=== PATIENT | male | born 1940 | race Caucasian/White ===

== ENCOUNTER 2017-02-06 18:12 | Inpatient (IN) | payer OTHER ==
[2017-02-06] MEDS ORDERED: NS 0.9% 1000 ML* 3,000 ML IV ONE (19:13)
--- NOTE | 2017-02-06 19:54 | RAD ---
INDICATION: Altered mental status, pneumonia. COMPARISON: There are no prior studies available for comparison. TECHNIQUE: A portable view of the chest was obtained. FINDINGS: Cardiac and mediastinal contours appear to be within normal limits. The lungs are underinflated. There is a linear density at the right lung base most consistent with atelectasis. The lungs are otherwise grossly clear. There appears to be distention of the colon. IMPRESSION: DISTENTION OF THE COLON. RECOMMEND ABDOMINAL SERIES FOR FURTHER EVALUATION.
--- NOTE | 2017-02-06 19:56 | RAD ---
INDICATION: Altered mental status. COMPARISON: There are no prior studies available for comparison. TECHNIQUE: Contiguous axial sections of the brain were obtained from the skull base to the vertex without contrast. FINDINGS: The ventricles, cisterns and sulci are within normal limits. No significant focal abnormality or mass effect is seen. There is no evidence for hemorrhage. No significant focal osseous abnormality is seen. The visualized portion of the paranasal sinuses and mastoid air cells appear clear. IMPRESSION: NO EVIDENCE FOR GROSS ACUTE INFARCT, MASS EFFECT OR HEMORRHAGE.
[2017-02-06 20:22] LABS: Hematocrit 31 % (42-52); Hemoglobin 10.3 g/dl (14.0-18.0); Mean Corpuscular HGB Conc 33 g/dl (31-36); Mean Corpuscular Hemoglobin 31 pg (27-31); Mean Corpuscular Volume 95 fL (80-94); Mean Platelet Volume 9 um3 (7.4-10.4); Red Blood Count 3.28 10^6/ul (4.0-5.4); Red Cell Distribution Width 23 % (10.5-15); White Blood Count 4.3 10^3/ul (3.5-10.8)
[2017-02-06 20:23] LABS: Add Diff/Slide Review? Slide Review Added; Comments Flag Yes
[2017-02-06 20:40] LABS: Albumin 2.6 g/dL (3.2-5.2); BUN/Creatinine Ratio 44.3 (8-20); Calcium 8.7 mg/dL (8.6-10.3); EGFR African American 164.8 (>60); EGFR Non-African American 128.2 (>60); Globulin 2.4 g/dL (2-4); Potassium 3.2 mmol/L (3.5-5.0); Total Bilirubin 1.1 mg/dL (0.2-1.0)
[2017-02-06 20:48] LABS: Troponin I 0.04 ng/mL (<0.04)
[2017-02-06 21:37] LABS: Budding Yeast Present (Absent); Urine Bacteria 2+ (Absent); Urine Bilirubin Negative (Negative); Urine Glucose 3+(>=500 mg/dL) (Negative); Urine Nitrite Negative (Negative)
--- NOTE | 2017-02-06 22:08 | ED ---
adriana Trinidad Timothy, scribed for Acosta Meléndez MD on 02/06/17 at 1859 . Complex/Multi-Sys Presentation - HPI Summary HPI Summary: Jorge Ramos is a 76 yo male presenting to [facility] with lethargy and weakness since 0700 this morning. Pt has a wedge compression fracture in his back and cellulitis in his left arm per triage. Per triage he is not taking fluids well. Pt states he has some rectal pain. His son is present in room. His son believes Pt is dehydrated and over-medicated. His son states Pt has a Hx of cholitis. Pt' s son states that his percocet dosage was increased causing constipation, and then diarrhea. His son's states he has been extremely confused today, and states that Pt claims to have seen Rubén today. His Mx includes wedge compression fracture and left arm cellulitis. - History Of Current Complaint Time Seen by Provider: 02/06/17 19:01 Hx Obtained From: Patient Onset/Duration: Sudden Onset, Lasting Hours, Still Present Timing: Constant Severity Currently: Moderate Severity Initially: Moderate Associated Signs And Symptoms: Positive: Weakness, Other - constipation, diarrhea, confusion, lethargy, not taking fluids well, rectal pain, - Allergies/Home Medications Allergies/Adverse Reactions: Allergies Allergy/AdvReac Type Severity Reaction Status Date / Time No Known Allergies Allergy Verified 02/06/17 18:48 PMH/Surg Hx/FS Hx/Imm Hx Infectious Disease History: No Infectious Disease History: Denies: Traveled Outside the [place] in Last 30 Days Review of Systems Positive: Other - lethargy/weakness Eyes: Negative ENT: Negative Cardiovascular: Negative Respiratory: Negative Gastrointestinal: Other - rectal pain Positive: Diarrhea, Other - constipation Genitourinary: Negative Musculoskeletal: Negative Skin: Negative Neurological: Other - confusion Psychological: Normal All Other Systems Reviewed And Are Negative: Yes Physical Exam - Summary Physical Exam Summary: The patient is well-nourished in no acute distress and in no acute pain. The skin is warm and dry and skin color reflects adequate perfusion. There is decreased skin turgor. There is excoriation on his bottom and ulcer around the anus. There is a red rash noted throughout the lower extremities bilaterally. HEENT: The head is normocephalic and atraumatic. The right pupil is larger than the left and both pupils are reactive. The conjunctivae are clear and without drainage. Nares are patent and without drainage. Mouth reveals dry mucous membranes and the throat is without erythema and exudate. The external ears are intact. The ear canals are patent and without drainage. The tympanic membranes are intact. Neck is supple with full range of motion and non-tender. There are no carotid bruits. There is no neck vein distension. Respiratory: Chest is non-tender. Lungs are clear to auscultation and breath sounds are symmetrical and equal. Cardiovascular: Heart is regular rate and rhythm. There is no murmur or rub auscultated. There is no peripheral edema and pulses are symmetrical and equal. Abdomen: The abdomen is soft and non-tender. There are normal bowel sounds heard in all four quadrants and there is no organomegaly palpated. Musculoskeletal: There is no back pain noted. Extremities are non-tender with full range of motion. There is capillary refill of 2 seconds. There is no peripheral pitting edema of the lower extremities or calf tenderness elicited. Neurological: Patient is alert and confused. The patient has symmetrical motor strength in all four extremities. Cranial nerves are grossly intact. Deep tendon reflexes are symmetrical and equal in all four extremities. Pt is slurring his words, but moves with assistance. There are good pulses. Psychiatric: The patient has an appropriate affect and does not exhibit any anxiety or depression. Triage Information Reviewed: Yes Vital Signs On Initial Exam: Initial Vitals Temp Pulse Resp BP Pulse Ox 97.6 F 56 18 126/66 96 02/06/17 18:15 02/06/17 18:15 02/06/17 18:15 02/06/17 18:15 02/06/17 18:15 Vital Signs Reviewed: Yes Diagnostics - Vital Signs Vital Signs Temp Pulse Resp BP Pulse Ox 02/06/17 18:46 97.6 F 56 18 126/66 96 02/06/17 18:15 97.6 F 56 18 126/66 96 - Laboratory Lab Results: Lab Results 02/06/17 02/06/17 02/06/17 Range/Units 20:08 20:08 20:08 WBC 4.3 (3.5-10.8) 10^3/ul RBC 3.28 L (4.0-5.4) 10^6/ul Hgb 10.3 L (14.0-18.0) g/dl Hct 31 L (42-52) % MCV 95 H (80-94) fL MCH 31 (27-31) pg MCHC 33 (31-36) g/dl RDW 23 H (10.5-15) % Plt Count 119 L (150-450) 10^3/ul MPV 9 (7.4-10.4) um3 Neut % (Auto) 85.8 H (38-83) % Lymph % (Auto) 12.2 L (25-47) % Gray % (Auto) 1.9 (1-9) % Eos % (Auto) 0 (0-6) % Baso % (Auto) 0.1 (0-2) % Absolute Neuts (auto) 3.7 (1.5-7.7) 10^3/ul Absolute Lymphs (auto) 0.5 L (1.0-4.8) 10^3/ul Absolute Monos (auto) 0.1 (0-0.8) 10^3/ul Absolute Eos (auto) 0 (0-0.6) 10^3/ul Absolute Basos (auto) 0 (0-0.2) 10^3/ul Absolute Nucleated RBC 6.0 10^3/ul Nucleated RBC % 0.26 INR (Anticoag Therapy) (0.89-1.11) Sodium 128 L (133-145) mmol/L Potassium 3.2 L (3.5-5.0) mmol/L Chloride 90 L (101-111) mmol/L Carbon Dioxide 31 (22-32) mmol/L Anion Gap 7 (2-11) mmol/L BUN 27 H (6-24) mg/dL Creatinine 0.61 L (0.67-1.17) mg/dL Est GFR ( Amer) 164.8 (>60) Est GFR (Non-Af Amer) 128.2 (>60) BUN/Creatinine Ratio 44.3 H (8-20) Glucose 385 H (70-100) mg/dL Lactic Acid 2.5 H* (0.5-2.0) mmol/L Calcium 8.7 (8.6-10.3) mg/dL Magnesium 2.0 (1.9-2.7) mg/dL Total Bilirubin 1.10 H (0.2-1.0) mg/dL AST 19 (13-39) U/L ALT 41 (7-52) U/L Alkaline Phosphatase 201 H (34-104) U/L Total Creatine Kinase 28 (10-223) U/L Troponin I 0.04 H* (<0.04) ng/mL B-Natriuretic Peptide ( - 100) pg/mL Total Protein 5.0 L (6.4-8.9) g/dL Albumin 2.6 L (3.2-5.2) g/dL Globulin 2.4 (2-4) g/dL Albumin/Globulin Ratio 1.1 (1-3) Urine Color Urine Appearance Urine pH (5-9) Ur Specific [place] (1.010-1.030) Urine Protein (Negative) Urine Ketones (Negative) Urine Blood (Negative) Urine Nitrate (Negative) Urine Bilirubin (Negative) Urine Urobilinogen (Negative) Ur Leukocyte Esterase (Negative) Urine WBC (Auto) (Absent) Urine RBC (Auto) (Absent) Ur Squamous Epith Cells (Absent) Urine Bacteria (Absent) Urine Yeast (Absent) Urine Glucose (Negative) 02/06/17 02/06/17 02/06/17 Range/Units 20:08 20:08 21:15 WBC (3.5-10.8) 10^3/ul RBC (4.0-5.4) 10^6/ul Hgb (14.0-18.0) g/dl Hct (42-52) % MCV (80-94) fL MCH (27-31) pg MCHC (31-36) g/dl RDW (10.5-15) % Plt Count (150-450) 10^3/ul MPV (7.4-10.4) um3 Neut % (Auto) (38-83) % Lymph % (Auto) (25-47) % Gray % (Auto) (1-9) % Eos % (Auto) (0-6) % Baso % (Auto) (0-2) % Absolute Neuts (auto) (1.5-7.7) 10^3/ul Absolute Lymphs (auto) (1.0-4.8) 10^3/ul Absolute Monos (auto) (0-0.8) 10^3/ul Absolute Eos (auto) (0-0.6) 10^3/ul Absolute Basos (auto) (0-0.2) 10^3/ul Absolute Nucleated RBC 10^3/ul Nucleated RBC % INR (Anticoag Therapy) 1.06 (0.89-1.11) Sodium (133-145) mmol/L Potassium (3.5-5.0) mmol/L Chloride (101-111) mmol/L Carbon Dioxide (22-32) mmol/L Anion Gap (2-11) mmol/L BUN (6-24) mg/dL Creatinine (0.67-1.17) mg/dL Est GFR ( Amer) (>60) Est GFR (Non-Af Amer) (>60) BUN/Creatinine Ratio (8-20) Glucose (70-100) mg/dL Lactic Acid (0.5-2.0) mmol/L Calcium (8.6-10.3) mg/dL Magnesium (1.9-2.7) mg/dL Total Bilirubin (0.2-1.0) mg/dL AST (13-39) U/L ALT (7-52) U/L Alkaline Phosphatase (34-104) U/L Total Creatine Kinase (10-223) U/L Troponin I (<0.04) ng/mL B-Natriuretic Peptide 51 ( - 100) pg/mL Total Protein (6.4-8.9) g/dL Albumin (3.2-5.2) g/dL Globulin (2-4) g/dL Albumin/Globulin Ratio (1-3) Urine Color Luz Elena Urine Appearance Cloudy Urine pH 5.0 (5-9) Ur Specific [place] 1.026 (1.010-1.030) Urine Protein Negative (Negative) Urine Ketones Negative (Negative) Urine Blood 1+ H (Negative) Urine Nitrate Negative (Negative) Urine Bilirubin Negative (Negative) Urine Urobilinogen Negative (Negative) Ur Leukocyte Esterase 1+ H (Negative) Urine WBC (Auto) 3+(>20/hpf) H (Absent) Urine RBC (Auto) 1+(3-5/hpf) H (Absent) Ur Squamous Epith Cells Present H (Absent) Urine Bacteria 2+ H (Absent) Urine Yeast Present H (Absent) Urine Glucose 3+(>=500 mg/dl) H (Negative) Result Diagrams: 02/06/17 20:08 02/06/17 20:08 Lab Statement: Any lab studies that have been ordered have been reviewed, and results considered in the medical decision making process. - Radiology CXR Xray Interpretation: Positive (See Comments) - IMPRESSION: DISTENTION OF THE COLON. RECOMMEND ABDOMINAL SERIES FOR FURTHER EVALUATION. Radiology Interpretation Completed By: Radiologist - CT Brain CT Interpretation: No Acute Changes - IMPRESSION: NO EVIDENCE FOR GROSS ACUTE INFARCT, MASS EFFECT OR HEMORRHAGE. CT Interpretation Completed By: Radiologist - EKG 2011 Cardiac Rate: NL - 99 BPM EKG Interpretation: Afib @ 99 BPM, nonspecific ST changes, normal axis, no STEMI. Re-Evaluation - Re-Evaluation First Eval Re-Evaluation Time: 21:49 Change: Unchanged Comment: Reviewed lab and imaging results with Pt. Complex Multi-Symp Course/Dx Assessment/Plan: Yaw Ramos is a 76 yo male [facility] with lethargy, weakness, constipation, diarrhea, rectal pain since 0700 this morning. His medication list is reviewed this visit. In the ED course he received IV fluids. His CXR suggests distension of the colon. His Brain CT suggests no evidence for gross acute infarct, mass effect, or hemorrhage. Of note is his troponin of 0.04. After clinical examination and review of his lab and imaging studies, as well as discussion with Dr. Rios, he will be admitted to [facility] for further evaluation and treatment. - Diagnoses Differential Diagnoses/HQI/PQRI: Cardiac Ischemia, Closed Cranial Trauma, Metabolic Abnormality, Sepsis, Urinary Tract Infection, Other - over sedation, colitis Provider Diagnoses: Dehydration, Altered mental status, Hyperglycemia - Physician Notifications Discussed Care Of Patient With: Joe Rios - Discussed Pt condition, accepts Pt for admission Time Discussed With Above Provider: 21:54 Discharge - Discharge Plan Condition: Stable Disposition: ADMITTED TO [facility] Discharge Disposition Comment: admission for further evaluation and treatment Referrals: Phoenix Kristopher, [Primary Care Provider] - The documentation as recorded by the adriana dominguez Timothy accurately reflects the service I personally performed and the decisions made by me, Acosta Meléndez MD.
[2017-02-06] MEDS ORDERED: Ondansetron TAB* 4 MG PO PRN (23:42)
[2017-02-06] MEDS ORDERED: NS 0.9% 1000 ML* 1,000 ML IV SCH (23:45)
[2017-02-07] MEDS ORDERED: Docusate CAP* 100 MG PO PRN (00:21)
[2017-02-07] MEDS ORDERED: Polyethylene Glycol 3350* 17 GM PACKET PO PRN (00:21)
[2017-02-07] MEDS ORDERED: Dextrose 50% Syringe 50 ML* 25 GM/50 ML SYRINGE IV PUSH PRN (00:37)
[2017-02-07] MEDS ORDERED: NS 0.9% w/ 20 Meq KCL 1000 ML* 1,000 ML IV SCH (01:00)
[2017-02-07] MEDS: cefTRIAXone VIAL(*) 1,000 MG in NS 0.9% 50 ML* 50 ML IVPB SCH (02:15)
[2017-02-07] MEDS: oxyCODONE/Acetamin 5/325 MG* TAB PO PRN (03:10)
--- NOTE | 2017-02-07 03:19 | HP ---
CC: Dr. Ubaldo Humphreys, [place], [place] * HISTORY AND PHYSICAL: DATE OF ADMISSION: 02/06/17 PRIMARY CARE PHYSICIAN: Dr. Ubaldo Humphreys in [place]. CHIEF COMPLAINT: Altered mental status. HISTORY OF PRESENT ILLNESS: The patient is a 76-year-old gentleman, who has had inflammation of his colon for some time. He eventually went for colonoscopy earlier this year and apparently went into new-onset atrial fibrillation. His doctor at that time thought it was secondary to an electrolyte imbalance and treated him for same. The colonoscopy was due to chronic diarrhea and abdominal pain. He was found to have throughout his entire colon. The possibility of ulcerative colitis was put forward. He was placed on mesalamine and eventually on prednisone when he was shifted from ____ _ to the [place]. He started doing better; however, he then tripped and fell and apparently fractured T11 or L1. He was sent to rehab eventually at [facility]. 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 He then developed a cellulitis in his left arm as well. Apparently, his condition worsened and he was sent back to the [place]. Eventually, he was sent to rehab and then [facility]. He was complaining still of great pain, so they increased his Percocet and he became very, very confused and was not eating or drinking and he was sent over here for altered mental status. He also suffered from constipation with the increase in Percocet. In the ED, the patient was evaluated and thought to be somewhat dehydrated clinically, certainly confused and he may also have a urinary tract infection. PAST MEDICAL HISTORY: Significant for possible ulcerative colitis as noted earlier, cellulitis of the left limb, recent falls, compression fracture of T11 to T12, wedge compression fracture of the first lumbar vertebrae, type 2 diabetes, hypertension, pressure ulcer of the sacrum, irritable bowel syndrome, AFib, candidal esophagitis. CURRENT MEDICATIONS: As follows: 1. Zofran 4 mg every 6 hours as needed. 2. Senokot 2 tabs twice daily. 3. Percocet 5/325 every 6 hours as needed. 4. Clotrimazole 10 mg 5 times a day. 5. Omeprazole 40 mg a day. 6. Mesalamine 4 tablets daily. 7. Furosemide 20 mg daily. 8. Diltiazem CD 240 mg daily. 9. Calmol 1 suppository at bedtime. 10. Tylenol 1000 mg every 8 hours as needed. 11. Medrol Dosepak, non-formulary med 10. ALLERGIES: He has no know drug allergies. FAMILY HISTORY: Reviewed and noncontributory. SOCIAL HISTORY: Quit tobacco 35 years ago. Quit alcohol 35 years ago. No recreational drug use. Up until October, he was splitting his own wood. He is a . He has 4 children. His son, Nasir Ramos, , is his healthcare proxy. REVIEW OF SYSTEMS: A 14-point review of systems was completed. All pertinent positives and negatives are in the history of present illness, otherwise it is negative. PHYSICAL EXAMINATION GENERAL: A pleasant gentleman lying in bed, in no acute distress. VITAL SIGNS: Blood pressure 107/90, pulse ox 100% on room air, respiratory rate 19 breaths per minute, heart rate 106 beats per minute, temperature 97.6 degrees. HEENT: Normocephalic, atraumatic. Pupils are equal, round, and reactive to light. Moist mucous membranes. NECK: Supple. No JVD, bruits, palpable thyroid, or lymphadenopathy. CHEST: Clear to auscultation and percussion bilaterally. CARDIOVASCULAR: S1, S2 appreciated. ABDOMEN: Positive bowel sounds in all 4 quadrants. Soft, slightly tender, but no rebound, no guarding, no rigidity. EXTREMITIES: No cyanosis or clubbing. +2 pulses bilaterally. NEURO: Alert and oriented x3. Moves all extremities. SKIN: No distinct rashes, but poor skin turgor and no axillary sweat. DIAGNOSTIC STUDIES/LAB DATA: White count 4.3, hemoglobin 10.3, hematocrit 31, platelets are 119. Sodium 128, potassium 3.2, chloride 90, CO2 31, BUN 27, creatinine 0.61, glucose is 385. Lactic acid 2.1. Troponin 0.04. INR 1.06. Urine has +1 leukocyte esterase, +3 wbc's, +[address] showed no evidence for gross acute infarct, mass effect, or hemorrhage. Chest x-ray was interpreted by Radiology as distention of colon, recommend abdominal series for further evaluation. EKG shows normal atrial fibrillation and a moderate ventricular response, normal axis, nonspecific ST-T wave changes. ASSESSMENT AND PLAN: 1. Altered mental status. The patient is becoming less confused while here. I suspect it is combination. He may have urinary tract infection. He maybe dehydrated and maybe the increased pain medications. I decreased his pain medications down to one q.6 hours. I am putting him on normal saline at 100 cc an hour and I am treating him for his urinary tract infection and cellulitis with 1 g Rocephin daily. Unfortunately, I am not sure this will be enough to hold his pain, but we will monitor closely. 2. Low back pain. It may be from the sacral decubitus at this point, it is difficulty to say. He has not had any imaging studies in some time and he was diagnosed with those fractures, but I am concerned some other etiology might be going on that is making him unable to walk. I have ordered MRI to check for any possible diskitis as well. I have also ordered a PT and OT consult on the patient and he may benefit from Neurology if he is unable to walk. 3. Diabetes mellitus. He did not seem to be on any medications, but I will put him on fingersticks with sliding scale insulin, check a hemoglobin A1c. 4. Distended colon on abdominal x-ray. Suspect from constipation, which he was complaining of. We will see how he improves with a bowel regimen. If not, we will get bowel series as recommended. 5. Urinary tract infection. Again, we will place the patient on Rocephin. Await culture results. 6. Gastroesophageal reflux disease. Continue PPI. 7. Ulcerative colitis. Continue mesalamine and he was on a Medrol Dosepak. We will start him on prednisone 20 mg and monitor, may benefit from GI consult. 8. Diet. Consistent carb diet. 9. DVT prophylaxis. Heparin subcu. 10. The patient is full code. TIME SPENT: Over 85 minutes were spent on this H and P, more than 45 minutes of which was spent in direct [id number] contact with the patient in evaluation , physical exam, counseling, and coordination of care. [id number]/[facility] #: [id number] DEB
[2017-02-07] MEDS: Heparin VIAL(*) 5000 UNITS/ML VIAL (FIVE THOUSAND) SUBCUT SCH ×2 (05:35→05:39)
[2017-02-07 06:13] LABS: Benzodiazepine Urine Screen None Detected (None Detect)
[2017-02-07 07:55] LABS: BUN/Creatinine Ratio 47.6 (8-20); Calcium 7.9 mg/dL (8.6-10.3); EGFR African American 253.6 (>60); EGFR Non-African American 197.2 (>60); Potassium 2.9 mmol/L (3.5-5.0)
[2017-02-07 08:05] LABS: Troponin I 0.03 ng/mL (<0.04)
[2017-02-07] MEDS: Insulin LISPRO* 1 UNITS UNIT SUBCUT SCH ×4 (08:50→20:37)
[2017-02-07] MEDS ORDERED: Senna/Docusate (NF) TAB PO SCH (09:00)
[2017-02-07] MEDS ORDERED: Docusate CAP* 100 MG PO SCH (09:00)
[2017-02-07] MEDS: Senna TAB PO SCH ×2 (09:02→20:46)
[2017-02-07] MEDS ORDERED: Potassium Chlor TAB* 20 MEQ TAB.ER PO ONE (09:39)
[2017-02-07] MEDS: Lactobacillus Acidophilu (GG)* 1 CAP CAP PO SCH ×2 (10:03→22:16)
[2017-02-07] MEDS: Omeprazole CAP* 20 MG PO SCH (10:06)
[2017-02-07] MEDS: predniSONE TAB* 20 MG PO SCH (10:07)
[2017-02-07] MEDS: Diltiazem CD CAP* 240 MG PO SCH (10:10)
[2017-02-07] MEDS: PTO: Mesalamine (NF) 1.2 GM TAB PO SCH (10:24)
[2017-02-07] MEDS: KCL 10 MEQ/50 ML IVPREMIX* 10 MEQ/50 ML BAG IV SCH ×3 (10:52→14:08)
[2017-02-07 15:24] LABS: BUN/Creatinine Ratio 48.5 (8-20); Calcium 7.5 mg/dL (8.6-10.3); EGFR African American 334.9 (>60); EGFR Non-African American 260.4 (>60); Potassium 3.6 mmol/L (3.5-5.0)
[2017-02-07] MEDS ORDERED: LORazepam TAB(*) 0.5 MG PO ONE (15:24)
[2017-02-07] MEDS ORDERED: LORazepam TAB(*) 0.5 MG ONE (15:28)
--- NOTE | 2017-02-07 15:37 | PN ---
Subjective Date of Service: 02/07/17 Interval History: This is a 76 yo gentleman with UC, steroid induced DM, atrial fibrillation, candidal esophagitis and recent compression fractures who presented with AMS and severe back pain from [facility] where he has been for rehab. Patient was quite functional and independent up until ~ 4 months ago at which point he began falling frequently at home. His granddaughter had been helping him at home, but one day he decided to go for a walk independently and fell. He hit his head and complained of back pain at that time but didn't want to be seen in the ER. His back pain progressed and compression fractures were recognized on XR. Patient was then admitted for rehab. Patient's family states he deteriorated significantly after entering rehab and has not been able to walk for ~ 4 weeks. He has been complaining of severe back pain, but when you ask him to localize the pain, it is more of his rectum that is causing his discomfort which is severely excoriated. Up until recently, he was having frequent, watery diarrhea due to his UC. Now he has small, soft stools. He has also developed multiple sacral ulcerations which may be contributing to his pain. UTI was suspected at admission and he was empirically started on Ceftriaxone. MRI of his LS has been ordered and currently pending. In regards to his AMS, his Percocet was increased ~ 3 days ago due to his complaints of back pain. Patient's orientation has improved slightly today but not back to baseline. He is still complaining of back/rectal pain. He has spent most of the day sleeping so far. Objective Active Medications: Dextrose (D50w Syringe 50 Ml*) 12.5 gm IV PUSH .FOR FS < 60 - SS PRN PRN Reason: FS < 60 Diltiazem HCl (Cardizem Cd Cap*) 240 mg PO DAILY [facility] Last Admin: 02/07/17 10:10 Dose: 240 mg Docusate Sodium (Colace Cap*) 100 mg PO BID PRN PRN Reason: CONSTIPATION Ceftriaxone Sodium 1,000 mg/ (Sodium Chloride) 50 mls @ 200 mls/hr IVPB Q24H [facility] Last Admin: 02/07/17 02:15 Dose: 200 mls/hr Potassium Chloride/Sodium Chloride (Ns 0.9% W/ 20 Meq Kcl 1000 Ml*) 1,000 mls @ 100 mls/hr IV PER RATE [facility] Insulin Human Lispro (Humalog*) 0 units SUBCUT ACHS [facility] PRN Reason: Protocol Last Admin: 02/07/17 12:48 Dose: 6 units Lactobacillus Rhamnosus (Culturelle*) 1 cap PO BID [facility] Last Admin: 02/07/17 10:03 Dose: 1 cap Lidocaine (Lidocaine 5% Oint*) 1 applic TOPICAL Q2H PRN PRN Reason: rectal pain Mesalamine (Lialda (Nf)) 4.8 gm PO DAILY [facility] Last Admin: 02/07/17 10:24 Dose: Not Given Omeprazole (Prilosec Cap*) 40 mg PO DAILY@0730 [facility] Last Admin: 02/07/17 10:06 Dose: 40 mg Ondansetron HCl (Zofran Tab*) 4 mg PO Q6H PRN PRN Reason: NAUSEA Oxycodone/Acetaminophen (Percocet 5/325 Tab*) 1 tab PO Q6H PRN PRN Reason: PAIN Last Admin: 02/07/17 03:10 Dose: 1 tab Polyethylene Glycol/Electrolytes (Miralax*) 17 gm PO DAILY PRN PRN Reason: CONSTIPATION Prednisone (Deltasone Tab*) 20 mg PO DAILY WITH MEAL [facility] Last Admin: 02/07/17 10:07 Dose: 20 mg Senna (Senokot Tab*) 2 tab PO BID [facility] Last Admin: 02/07/17 09:02 Dose: Not Given Vital Signs: Temp Pulse Resp BP Pulse Ox 97.9 F 111 17 102/63 92 02/07/17 07:27 02/07/17 11:19 02/07/17 11:19 02/07/17 11:19 02/07/17 11:19 Appearance: Elderly gentleman who appears slightly uncomfortable, accompanied by his family Respiratory: Symmetrical Chest Expansion and Respiratory Effort, Clear to Auscultation Cardiovascular: NL Sounds; No Murmurs; No JVD, RRR Abdominal: NL Sounds; No Tenderness; No Distention Extremities: No Edema Skin: - - not fully examined, see nursing notes Neurological: - - alert, some confusion Result Diagrams: 02/06/17 20:08 02/07/17 05:49 Additional Lab and Data: . Microbiology and Other Data: Microbiology 02/07/17 02:20 Nasal Screen MRSA (PCR)([facility]LE[facility]) - Final Nasal Mrsa Negative Assess/Plan/Problems-Billing Assessment: This is a 76 yo gentleman with UC, steroid induced DM, atrial fibrillation, candidal esophagitis and recent compression fractures who presented from [facility] with AMS and severe back pain - Patient Problems (1) Encephalopathy Comment: Toxic encephalopathy likely due to recent increase in Percocet and UTI Improving slightly (2) UTI (urinary tract infection) Comment: Empirically treating with Ceftriaxone Initial cultures growing >100K Citrobacter No growth on blood cultures thus far (3) Back pain Comment: Compression fractures ~ 4 weeks ago Patient mostly complaining of rectal pain - ordered topical lidocaine Sacral ulcers may also be contributing - requested wound care consult MRI pending, some concern for discitis Patient's functional status has declined significantly over the last 4 weeks PT eval completed, patient requires Jose lift for transfers (4) 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 MRI pending. Anticipate dc back to [facility] in 2-3 days
[2017-02-07] MEDS ORDERED: Gadoteridol* (CONTRAST) 279.3 MG/ML 10 ML IV ONE (16:05)
--- NOTE | 2017-02-07 16:53 | RAD ---
Indication: Evaluate for diskitis, osteomyelitis. Image Sequences: Sagittal T1, T2, STIR, axial T1 and T2-weighted images of the lumbar spine were obtained. Patient refused intravenous contrast. Vertebral bodies appear normal in height. Compression fracture of L1 is noted. Age of this is undetermined. There is serpiginous low signal present. There is some edema and fluid at the L1-2 disc as well as T11-12 disc space. Minimal degenerative disc disease is noted. Serpiginous abnormal signal is noted in the superior endplate of L3, L2, L1, T12 and T11. No evidence of spinal canal compression is noted. IMPRESSION: ABNORMAL SIGNAL AT L3, L2, L1, T12 AND T11 WHICH APPEARS SERPIGINOUS. COMPRESSION OF L1 IS NOTED. NO DEFINITE BONE MARROW EDEMA IS NOTED. THIS MAY REPRESENT AVASCULAR NECROSIS OF THE LUMBAR VERTEBRA. ADDITIONALLY, THERE IS SOME FLUID NOTED AT THE INFERIOR DISC SPACE AT L1-2 AND T11-12 WHICH IS LIKELY DUE TO SEQUELA FROM AVASCULAR NECROSIS. THIS PROBABLY DOES NOT REPRESENT DISKITIS, ALTHOUGH THE PATIENT REFUSED IV CONTRAST AND FURTHER CHARACTERIZATION IS NOT POSSIBLE.
[2017-02-07] MEDS: LIDOCAINE 5% TOPICAL PRN (17:17)
--- NOTE | 2017-02-07 18:19 | RAD ---
Indication: Facial asymmetry. CT of the brain was performed without IV contrast. Ventricular structures are midline. No midline shift is noted. The extraction spaces are unremarkable. There is no evidence of intracranial mass or hemorrhage. No other high or low density lesions are identified. Calcified vertebral arteries are noted. Mastoid air cells and paranasal sinuses are otherwise unremarkable. IMPRESSION: No intracranial mass or hemorrhage is noted.
[2017-02-07] MEDS: Insulin GLARGINE(*) 1 UNITS UNIT SUBCUT SCH (20:43)
[2017-02-08] MEDS: cefTRIAXone VIAL(*) 1,000 MG in NS 0.9% 50 ML* 50 ML IVPB SCH (01:09)
[2017-02-08] MEDS: guaiFENesin ER TAB 600 MG PO PRN ×3 (05:24→22:10)
[2017-02-08 06:06] LABS: Hematocrit 26 % (42-52); Hemoglobin 8.7 g/dl (14.0-18.0); Mean Corpuscular HGB Conc 33 g/dl (31-36); Mean Corpuscular Hemoglobin 31 pg (27-31); Mean Corpuscular Volume 94 fL (80-94); Mean Platelet Volume 8 um3 (7.4-10.4); Red Blood Count 2.79 10^6/ul (4.0-5.4); Red Cell Distribution Width 23 % (10.5-15); White Blood Count 3.6 10^3/ul (3.5-10.8)
[2017-02-08 06:10] LABS: Add Diff/Slide Review? Slide Review Added; Comments Flag Yes
[2017-02-08 06:16] LABS: Calcium 7.8 mg/dL (8.6-10.3); EGFR Non-African American 342.9 (>60)
[2017-02-08 06:47] LABS: Hypochromasia 1+; Immature Granulocytes 32 % (0-9); Macrocytosis 1+; Microcytosis 1+; Neutrophil % 52 % (38-83); Polychromasia 1+
[2017-02-08] MEDS: Insulin LISPRO* 1 UNITS UNIT SUBCUT SCH ×4 (07:35→22:05)
[2017-02-08 07:41] LABS: Magnesium 1.5 mg/dL (1.9-2.7)
[2017-02-08] MEDS: Senna TAB PO SCH ×2 (08:25→22:10)
[2017-02-08] MEDS: Omeprazole CAP* 20 MG PO SCH (08:45)
[2017-02-08] MEDS: Lactobacillus Acidophilu (GG)* 1 CAP CAP PO SCH ×2 (08:45→22:03)
[2017-02-08] MEDS: Diltiazem CD CAP* 240 MG PO SCH (08:45)
[2017-02-08] MEDS: predniSONE TAB* 20 MG PO SCH (08:45)
[2017-02-08] MEDS: PTO: Mesalamine (NF) 1.2 GM TAB PO SCH (08:45)
--- NOTE | 2017-02-08 08:56 | CONSULT ---
Consult Consult: Neurosurgery consult Date of consult: 02/08/17 Reason for consult: Lumbar compression fracture Referring physician: MARY ELLEN Alexandre HPI: This is a 76 year old male with past medical history significant for HTN, type 2 diabetes, atrial fibrillation, ulcerative colitis who presented to the [facility] ED from [facility] for altered mental status and low back pain. History is primarily obtained from family member in the room although patient is able to report symptoms. The patient has experienced 3-4 falls in the past 4 weeks while at home resulting in severe low back pain and difficulty with ambulation. He has not been able to walk in the past 4 weeks. Prior to this, he was using a cane for stability and was able to get around without difficulty. He complains of low back pain without radiation to the bilateral lower extremities. Pain is worse with movement and is improved with laying or recumbent in bed. He denies numbness, tingling and weakness in the lower extremities. He also complains of rectal pain. He denies headache, vision changes, changes is speech, difficulty breathing, chest pain, neck pain, numbness, tingling and pain in the upper extremities, lightheadedness and dizziness. Past medical history: 1. Ulcerative colitis 2. HTN 3. Steroid induced diabetes 4. Candidal esophagitis 5. Left upper extremity cellulitis 6. Atrial fibrillation Home medications: 1. Acetaminophen [Acetaminophen Extra Stren] 1,000 mg PO Q8H PRN 02/06/17 [ History Confirmed 02/06/17] 2. Calmol-4 76-10 % 1 supp DC BEDTIME 02/06/17 [History Confirmed 02/06/17] 3. Clotrimazole 10 mg PO SEE INSTRUCTIONS 02/06/17 [History Confirmed 02/06/17] 4. Diltiazem HCl Coated Beads [Cardizem 120 MG LA] 240 mg PO DAILY 02/06/17 [ History Confirmed 02/06/17] 5. Furosemide TAB* [Lasix TAB*] 20 mg PO DAILY 02/06/17 [History Confirmed 02/06] 6. Medrol Dosepak 4 MG* 02/06/17 [History] 7. Mesalamine (NF) [Lialda (NF)] 4 tab PO DAILY 02/06/17 [History Confirmed 03/18] 8. Non Formulary Med10* 02/06/17 [History] 9. Omeprazole 40 mg PO DAILY 02/06/17 [History Confirmed 02/06/17] 10. Ondansetron TAB* [Zofran 4 MG Tab*] 4 mg PO Q6H PRN 02/06/17 [History Confirmed 02/06/17] 11. Sennosides-Docusate Sodium [Senokot S 8.6-50 mg] 2 tab PO BID 02/06/17 [ History Confirmed 02/06/17] 12. oxyCODONE/Acetamin 5/325 MG* [Percocet 5/325 TAB*] 1 tab PO Q6H PRN [History Confirmed 02/06/17] Allergies: No known allergies Social history: Former smoker and former alcohol consumption. Was living at home with assistance from family and, more recently, was admitted to [facility] for rehab. ROS: ROS completed; all pertinent findings stated in HPI and all others negative. Physical Exam: Vital Signs: Temp Pulse Resp BP Pulse Ox 97.6 F 96 15 123/53 95 02/08/17 03:13 02/08/17 07:27 02/08/17 07:27 02/08/17 07:27 02/08/17 07:27 General: Alert, no distress recumbent in bed. HEENT: Head is normocephalic and atraumatic. PERRL, EOMI, sclerae anicteric. Gross hearing intact. Moist mucus membranes. Neck: Supple, symmetric and nontender. CV: Radial pulses 2+ and equal. Pedal pulses palpable. Lungs: Breathing is nonlabored and lungs are clear. Abdomen: Normoactive bowel sounds. Abdomen is soft, nondistended and nontender. Neuro: CN II-XII intact. Speech is clear and coherent. Answers questions appropriately. Sensation intact throughout. Strength in biceps and triceps 4/5 bilaterally. Computer Peripheral Equipment Operator strength 4/5 bilaterally. Proximal lower extremity strength 3/ 5 bilaterally. Dorsiflexion, plantarflexion and EHL strength 5/5 bilaterally. Extremities: Pitting edema bilateral ankles. Imagin. MRI lumbar spine shows compression fractures of T11, T12 and L1. Assessment: This is a 76 year old male who presented to [facility] ED with altered mental status and low back pain who was found to have compression fractures of T11, T12 and L1. L1 fracture is most significant. Lower extremity strength deficits and muscle atrophy secondary to being sedentary for the past several weeks. There is no indication at this time for neurosurgical intervention for treatment of the fractures. This case was discussed with Dr. Mark and recommendations discussed with MARY ELLEN Alexandre. Plan: 1. Continue pain management. 2. No surgery indicated for fractures.
[2017-02-08] MEDS ORDERED: Magnesium Sulf 4 GM/100 ML IV* 4,000 MG/100 ML BAG IVPB ONE (11:38)
--- NOTE | 2017-02-08 13:33 | PN ---
Subjective Date of Service: 02/08/17 Interval History: Patient remains lethargic but more coherent with complaints of back pain/rectal pain. Evaluated by neurosurgery team this am. No new complaints Objective Active Medications: Dextrose (D50w Syringe 50 Ml*) 12.5 gm IV PUSH .FOR FS < 60 - SS PRN PRN Reason: FS < 60 Diltiazem HCl (Cardizem Cd Cap*) 360 mg PO DAILY [facility] Docusate Sodium (Colace Cap*) 100 mg PO BID PRN PRN Reason: CONSTIPATION Guaifenesin (Mucinex*) 600 mg PO BID PRN PRN Reason: COUGH Last Admin: 02/08/17 11:04 Dose: 600 mg Ceftriaxone Sodium 1,000 mg/ (Sodium Chloride) 50 mls @ 200 mls/hr IVPB Q24H [facility] Last Admin: 02/08/17 01:09 Dose: 200 mls/hr Magnesium Sulfate (Magnesium Sulf 4 Gm/100 Ml Iv*) 4,000 mg in 100 mls @ 33.333 mls/hr IVPB ONCE ONE Stop: 02/08/17 14:37 Last Admin: 02/08/17 12:44 Dose: 33.333 mls/hr Insulin Glargine (Lantus(*)) 15 units SUBCUT Q24H [facility] Last Admin: 02/07/17 20:43 Dose: 15 units Insulin Human Lispro (Humalog*) 0 units SUBCUT ACHS [facility] PRN Reason: Protocol Lactobacillus Rhamnosus (Culturelle*) 1 cap PO BID [facility] Last Admin: 02/08/17 08:45 Dose: 1 cap Lidocaine (Lidocaine 5% Oint*) 1 applic TOPICAL Q2H PRN PRN Reason: rectal pain Last Admin: 02/07/17 17:17 Dose: 1 applic Lidocaine (Lidocaine 5% Oint*) 1 applic TOPICAL TID [facility] Lidocaine (Lidoderm 5% Patch*) 1 patch TRANSDERM .ON 0900 OFF AT 2100 [facility] Mesalamine (Lialda (Nf)) 4.8 gm PO DAILY [facility] Last Admin: 02/08/17 08:45 Dose: 4.8 gm Methylprednisolone (Medrol Tab*) 16 mg PO BID [facility] Omeprazole (Prilosec Cap*) 40 mg PO DAILY@0730 [facility] Last Admin: 02/08/17 08:45 Dose: 40 mg Ondansetron HCl (Zofran Tab*) 4 mg PO Q6H PRN PRN Reason: NAUSEA Oxycodone/Acetaminophen (Percocet 5/325 Tab*) 1 tab PO Q6H PRN PRN Reason: PAIN Last Admin: 02/07/17 03:10 Dose: 1 tab Pharmacy Profile Note (Lidocaine Patch Remove*) 1 note N/A 2100 [facility] Polyethylene Glycol/Electrolytes (Miralax*) 17 gm PO DAILY PRN PRN Reason: CONSTIPATION Potassium Chloride (Klor Con Er Tab*) 40 meq PO BID [facility] Stop: 02/09/17 09:01 Senna (Senokot Tab*) 2 tab PO BID [facility] Last Admin: 02/08/17 08:25 Dose: Not Given Vital Signs: Temp Pulse Resp BP Pulse Ox 97.6 F 96 16 123/53 95 02/08/17 03:13 02/08/17 07:27 02/08/17 08:00 02/08/17 07:27 02/08/17 07:27 Appearance: Lethargic, but participatory in conversation. Accompanied by male family member Respiratory: Symmetrical Chest Expansion and Respiratory Effort, Clear to Auscultation, - - some upper airway congestion noted Cardiovascular: NL Sounds; No Murmurs; No JVD, RRR Abdominal: NL Sounds; No Tenderness; No Distention Extremities: - - trace - 1+ edema Skin: - - sacral ulcers not evaluated Neurological: - - alert, appropriately oriented, ptosis of L eye which is chronic per family Result Diagrams: 02/08/17 05:36 02/08/17 05:36 Additional Lab and Data: . Microbiology and Other Data: Microbiology 02/07/17 02:20 Nasal Screen MRSA (PCR)([facility]) - Final Nasal Mrsa Negative Diagnostic Imaging: MRI LS - compression fracture L1, some signal changes of L1-2 and T11-12 no definite diskitis Assess/Plan/Problems-Billing Assessment: This is a 76 yo gentleman with UC, steroid induced DM, atrial fibrillation, candidal esophagitis and recent compression fractures who presented from [facility] with AMS and severe back pain - Patient Problems (1) Encephalopathy Comment: Toxic encephalopathy likely due to recent increase in Percocet and UTI Improving He has not received any narcotic medications in >24h (2) UTI (urinary tract infection) Comment: Empirically treated with ceftriaxone, but sensitivities now demonstrate resistance Final culture demonstrates >100K Citrobacter No growth on blood cultures thus far Discontinue ceftriaxone and start cefepime (3) Back pain Comment: Compression fractures ~ 4 weeks ago Patient mostly complaining of rectal pain - ordered topical lidocaine, pt doesn' t recall if it was helpful, try to use it on a scheduled bases Sacral ulcers may also be contributing - requested wound care consult, apply Mepilex for now MRI shows no signs of discitis or cord compression Little change in pain since limiting narcotics Try adding a lidocaine patch to L1 region Appreciate neurosurgery consult, no surgical intervention indicated PT eval completed, patient requires Jose lift for transfers (4) Diabetes Comment: 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 Anticipate dc back to [facility] in 2-3 days
[2017-02-08] MEDS ORDERED: Lidocaine PATCH 5%* 1 PATCH TRANSDERM SCH (14:00)
[2017-02-08] MEDS: Cefepime(*) 1 GM in NS 0.9% 50 ML* 50 ML IVPB SCH (15:46)
[2017-02-08] MEDS: LIDOCAINE 5% TOPICAL SCH ×2 (15:46→22:02)
[2017-02-08] MEDS: Potassium Chlor TAB* 20 MEQ TAB.ER PO SCH (22:03)
[2017-02-08] MEDS: methylPREDNISolone TAB* 4 MG PO SCH (22:03)
[2017-02-08] MEDS: Insulin GLARGINE(*) 1 UNITS UNIT SUBCUT SCH (22:05)
[2017-02-08] MEDS: Lidocaine Patch REMOVE* 1 NOTE MISC SCH (22:24)
[2017-02-09] MEDS: Cefepime(*) 1 GM in NS 0.9% 50 ML* 50 ML IVPB SCH ×2 (01:55→13:37)
[2017-02-09] MEDS: Benzonatate CAP* 100 MG PO PRN ×2 (02:17→22:51)
[2017-02-09 06:43] LABS: Hematocrit 26 % (42-52); Hemoglobin 8.7 g/dl (14.0-18.0); Mean Corpuscular HGB Conc 33 g/dl (31-36); Mean Corpuscular Hemoglobin 32 pg (27-31); Mean Corpuscular Volume 96 fL (80-94); Mean Platelet Volume 8 um3 (7.4-10.4); Red Blood Count 2.72 10^6/ul (4.0-5.4); Red Cell Distribution Width 23 % (10.5-15); White Blood Count 4.6 10^3/ul (3.5-10.8)
[2017-02-09 06:47] LABS: Add Diff/Slide Review? Slide Review Added; Comments Flag Yes
[2017-02-09 06:48] LABS: BUN/Creatinine Ratio 52.4 (8-20); Calcium 7.6 mg/dL (8.6-10.3); EGFR African American 564.3 (>60); EGFR Non-African American 438.8 (>60); Potassium 3.5 mmol/L (3.5-5.0)
[2017-02-09 07:02] LABS: Immature Granulocytes 41 % (0-9); Metamyelocytes % 1 % (0-2); Myelocytes % 1 % (0-1); Neutrophil % 56 % (38-83)
[2017-02-09 07:03] LABS: Hypochromasia 1+; Macrocytosis 1+; Microcytosis 1+; Polychromasia 2+
[2017-02-09] MEDS: PTO: Mesalamine (NF) 1.2 GM TAB PO SCH (09:02)
[2017-02-09] MEDS: LIDOCAINE 5% TOPICAL PRN (09:02)
[2017-02-09] MEDS: Diltiazem CD CAP* 180 MG PO SCH (09:11)
[2017-02-09] MEDS: methylPREDNISolone TAB* 4 MG PO SCH ×2 (09:12→22:51)
[2017-02-09] MEDS: Omeprazole CAP* 20 MG PO SCH (09:14)
[2017-02-09] MEDS: oxyCODONE/Acetamin 5/325 MG* TAB PO PRN (09:14)
[2017-02-09] MEDS: Lactobacillus Acidophilu (GG)* 1 CAP CAP PO SCH ×2 (09:14→22:51)
[2017-02-09] MEDS: Potassium Chlor TAB* 20 MEQ TAB.ER PO SCH (09:15)
[2017-02-09] MEDS: guaiFENesin ER TAB 600 MG PO PRN (09:17)
[2017-02-09] MEDS: Insulin LISPRO* 1 UNITS UNIT SUBCUT SCH ×4 (09:18→22:50)
[2017-02-09] MEDS: LIDOCAINE 5% TOPICAL SCH ×3 (09:29→22:51)
[2017-02-09] MEDS: Senna TAB PO SCH (09:29)
--- NOTE | 2017-02-09 14:50 | PN ---
Subjective Date of Service: 02/09/17 Interval History: Patient seen and examined at bedside. Denies CP, SOB. Reports persistent back pain and has not noticed any significant difference with medication changes. Appears coherent and knows where he is, though he asks "what's today's date?" Upon hearing response, he states, "I've had this back problem since October." Family History: Unchanged from Admission Social History: Unchanged from Admission Past Medical History: Unchanged from Admission Objective Active Medications: Benzonatate (Tessalon Cap*) 100 mg PO TID PRN PRN Reason: COUGH Last Admin: 02/09/17 02:17 Dose: 100 mg Dextrose (D50w Syringe 50 Ml*) 12.5 gm IV PUSH .FOR FS < 60 - SS PRN PRN Reason: FS < 60 Diltiazem HCl (Cardizem Cd Cap*) 360 mg PO DAILY [facility] Last Admin: 02/09/17 09:11 Dose: 360 mg Docusate Sodium (Colace Cap*) 100 mg PO BID PRN PRN Reason: CONSTIPATION Guaifenesin (Mucinex*) 600 mg PO BID PRN PRN Reason: COUGH Last Admin: 02/09/17 09:17 Dose: 600 mg Cefepime HCl 1 gm/ Sodium (Chloride) 50 mls @ 100 mls/hr IVPB Q12H [facility] Last Admin: 02/09/17 13:37 Dose: 100 mls/hr Insulin Glargine (Lantus(*)) 15 units SUBCUT Q24H [facility] Last Admin: 02/08/17 22:05 Dose: 15 units Insulin Human Lispro (Humalog*) 0 units SUBCUT ACHS [facility] PRN Reason: Protocol Last Admin: 02/09/17 12:36 Dose: 9 units Lactobacillus Rhamnosus (Culturelle*) 1 cap PO BID [facility] Last Admin: 02/09/17 09:14 Dose: 1 cap Lidocaine (Lidocaine 5% Oint*) 1 applic TOPICAL Q2H PRN PRN Reason: rectal pain Last Admin: 02/09/17 09:02 Dose: 1 applic Lidocaine (Lidocaine 5% Oint*) 1 applic TOPICAL TID [facility] Last Admin: 02/09/17 13:38 Dose: 1 applic Lidocaine (Lidoderm 5% Patch*) 1 patch TRANSDERM .ON 0900 OFF AT 2100 [facility] Mesalamine (Lialda (Nf)) 4.8 gm PO DAILY [facility] Last Admin: 02/09/17 09:02 Dose: 4.8 gm Methylprednisolone (Medrol Tab*) 16 mg PO BID [facility] Last Admin: 02/09/17 09:12 Dose: 16 mg Omeprazole (Prilosec Cap*) 40 mg PO DAILY@0730 [facility] Last Admin: 02/09/17 09:14 Dose: 40 mg Ondansetron HCl (Zofran Tab*) 4 mg PO Q6H PRN PRN Reason: NAUSEA Oxycodone/Acetaminophen (Percocet 5/325 Tab*) 1 tab PO Q6H PRN PRN Reason: PAIN Last Admin: 02/09/17 09:14 Dose: 1 tab Pharmacy Profile Note (Lidocaine Patch Remove*) 1 note N/A 2100 [facility] Last Admin: 02/08/17 22:24 Dose: Not Given Polyethylene Glycol/Electrolytes (Miralax*) 17 gm PO DAILY PRN PRN Reason: CONSTIPATION Senna (Senokot Tab*) 2 tab PO BID [facility] Last Admin: 02/09/17 09:29 Dose: Not Given Vital Signs 02/08/17 02/08/17 02/08/17 15:16 19:58 20:00 Temperature 98.0 F 98.1 F Pulse Rate 84 90 Respiratory 15 15 16 Rate Blood Pressure 114/47 102/46 (mmHg) O2 Sat by Pulse 93 97 Oximetry 02/09/17 02/09/17 02/09/17 03:55 07:49 08:00 Temperature 98.0 F Pulse Rate 72 93 Respiratory 15 20 18 Rate Blood Pressure 122/75 136/71 (mmHg) O2 Sat by Pulse 90 95 Oximetry 02/09/17 02/09/17 09:14 11:14 Temperature Pulse Rate Respiratory 18 18 Rate Blood Pressure (mmHg) O2 Sat by Pulse Oximetry Oxygen Devices in Use Now: None Appearance: Male patient, lying in bed, NAD Eyes: - - left eye ptosis Ears/Nose/Mouth/Throat: Mucous Membranes Moist Neck: NL Appearance and Movements; NL JVP Respiratory: Symmetrical Chest Expansion and Respiratory Effort, Clear to Auscultation Cardiovascular: RRR Abdominal: NL Sounds; No Tenderness; No Distention Extremities: - - trace LE edema Neurological: Alert and Oriented x 3 Lines/Tubes/Other Access: Clean, Dry and Intact PICC Line Nutrition: Taking PO's Result Diagrams: 02/09/17 06:06 02/09/17 06:06 Additional Lab and Data: . Microbiology and Other Data: Microbiology 02/07/17 02:20 Nasal Screen MRSA (PCR)([facility]) - Final Nasal Mrsa Negative Diagnostic Imaging: MRI LS - compression fracture L1, some signal changes of L1-2 and T11-12 no definite diskitis Assess/Plan/Problems-Billing Assessment: This is a 76 yo gentleman with UC, steroid induced DM, atrial fibrillation, candidal esophagitis and recent compression fractures who presented [facility] with AMS and severe back pain - Patient Problems (1) Encephalopathy Code(s): G93.40 - ENCEPHALOPATHY, UNSPECIFIED Comment: Toxic encephalopathy likely due to recent increase in Percocet and UTI Improving Received one dose of Percocet this AM but appears to be tolerating well. (2) UTI (urinary tract infection) Comment: Empirically treated with ceftriaxone, but sensitivities now demonstrate resistance Final culture demonstrates >100K Citrobacter No growth on blood cultures thus far Discontinue ceftriaxone and start cefepime (3) Back pain Code(s): M54.9 - DORSALGIA, UNSPECIFIED Comment: Compression fractures ~ 4 weeks ago Patient mostly complaining of rectal pain - ordered topical lidocaine, pt doesn' t recall if it was helpful, try to use it on a scheduled bases Sacral ulcers may also be contributing - appreciate wound care consult, continue daily dressing changes with Santyl and vaseline gauze. 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% Per pt's family, no treatment has been initiated as his glycemic control is expected to improve as he is tapered off of his steroids Plan to start Lantus at 15U nightly with SS Humalog at mealtime (5) Sacral decubitus ulcer, stage II Code(s): L89.152 - PRESSURE ULCER OF SACRAL REGION, STAGE 2 Comment: Appreciate wound care consult Daily dressing change recommended, with Santyl and vaseline gauze (6) Atrial fibrillation Code(s): I48.91 - UNSPECIFIED ATRIAL FIBRILLATION Comment: Not anticoagulated per family request h/o severe bleeding (7) Candidal esophagitis Code(s): B37.81 - CANDIDAL ESOPHAGITIS Comment: Cont clotrimazole (8) DVT prophylaxis Comment: SCDs Patient's family refuses use of chemical prophylaxis (9) DNR (do not resuscitate) Status and Disposition: Inpatient. Anticipate dc back to [facility] in 2-3 days
[2017-02-09] MEDS: Collagenase 250 MG/GM OINT* 30 GM TOPICAL SCH (16:20)
[2017-02-09] MEDS: Lidocaine Patch REMOVE* 1 NOTE MISC SCH (21:20)
[2017-02-09] MEDS: Insulin GLARGINE(*) 1 UNITS UNIT SUBCUT SCH (22:50)
[2017-02-10] MEDS: guaiFENesin ER TAB 600 MG PO PRN (01:39)
[2017-02-10] MEDS: Cefepime(*) 1 GM in NS 0.9% 50 ML* 50 ML IVPB SCH ×2 (01:40→14:13)
[2017-02-10] MEDS: oxyCODONE/Acetamin 5/325 MG* TAB PO PRN (04:38)
[2017-02-10] MEDS: Omeprazole CAP* 20 MG PO SCH (07:16)
[2017-02-10] MEDS: PTO: Mesalamine (NF) 1.2 GM TAB PO SCH (08:59)
[2017-02-10] MEDS: Insulin LISPRO* 1 UNITS UNIT SUBCUT SCH ×4 (08:59→21:06)
[2017-02-10] MEDS: LIDOCAINE 5% TOPICAL SCH ×3 (09:00→21:08)
[2017-02-10] MEDS: Collagenase 250 MG/GM OINT* 30 GM TOPICAL SCH (09:00)
[2017-02-10] MEDS: Diltiazem CD CAP* 180 MG PO SCH (09:00)
[2017-02-10] MEDS: Lactobacillus Acidophilu (GG)* 1 CAP CAP PO SCH ×2 (09:00→21:08)
[2017-02-10] MEDS: methylPREDNISolone TAB* 4 MG PO SCH ×2 (09:00→21:07)
--- NOTE | 2017-02-10 10:18 | PN ---
Subjective Date of Service: 02/10/17 Interval History: Patient seen and examined at bedside. Reports better pain relief when lidocaine patch is on. Denies CP, SOB, abd pain, n/v. Patient is mildly disoriented, asking "what day is it again?" He does know his family and that he's in a hospital. Family concerned for protein intake and are in agreement with protein supplement shakes. Family wants patient at [facility] in [place] or another rehab facility closer to them. Family History: Unchanged from Admission Social History: Unchanged from Admission Past Medical History: Unchanged from Admission Objective Active Medications: Benzonatate (Tessalon Cap*) 100 mg PO TID PRN PRN Reason: COUGH Last Admin: 02/09/17 22:51 Dose: 100 mg Collagenase (Santyl 250 Mg/Gm Oint*) 1 applic TOPICAL DAILY [facility] Last Admin: 02/10/17 09:00 Dose: 1 applic Dextrose (D50w Syringe 50 Ml*) 12.5 gm IV PUSH .FOR FS < 60 - SS PRN PRN Reason: FS < 60 Diltiazem HCl (Cardizem Cd Cap*) 360 mg PO DAILY [facility] Last Admin: 02/10/17 09:00 Dose: 360 mg Guaifenesin (Mucinex*) 600 mg PO BID PRN PRN Reason: COUGH Last Admin: 02/10/17 01:39 Dose: 600 mg Cefepime HCl 1 gm/ Sodium (Chloride) 50 mls @ 100 mls/hr IVPB Q12H [facility] Last Admin: 02/10/17 01:40 Dose: 100 mls/hr Insulin Glargine (Lantus(*)) 15 units SUBCUT Q24H [facility] Last Admin: 02/09/17 22:50 Dose: 15 units Insulin Human Lispro (Humalog*) 0 units SUBCUT ACHS [facility] PRN Reason: Protocol Last Admin: 02/10/17 08:59 Dose: 3 units Lactobacillus Rhamnosus (Culturelle*) 1 cap PO BID [facility] Last Admin: 02/10/17 09:00 Dose: 1 cap Lidocaine (Lidocaine 5% Oint*) 1 applic TOPICAL Q2H PRN PRN Reason: rectal pain Last Admin: 02/09/17 09:02 Dose: 1 applic Lidocaine (Lidocaine 5% Oint*) 1 applic TOPICAL TID [facility] Last Admin: 02/10/17 09:00 Dose: 1 applic Lidocaine (Lidoderm 5% Patch*) 1 patch TRANSDERM .ON 0900 OFF AT 2100 [facility] Last Admin: 02/09/17 16:20 Dose: 1 patch Mesalamine (Lialda (Nf)) 4.8 gm PO DAILY [facility] Last Admin: 02/10/17 08:59 Dose: 4.8 gm Methylprednisolone (Medrol Tab*) 16 mg PO BID [facility] Last Admin: 02/10/17 09:00 Dose: 16 mg Omeprazole (Prilosec Cap*) 40 mg PO DAILY@0730 [facility] Last Admin: 02/10/17 07:16 Dose: 40 mg Ondansetron HCl (Zofran Tab*) 4 mg PO Q6H PRN PRN Reason: NAUSEA Oxycodone/Acetaminophen (Percocet 5/325 Tab*) 1 tab PO Q6H PRN PRN Reason: PAIN Last Admin: 02/10/17 04:38 Dose: 1 tab Pharmacy Profile Note (Lidocaine Patch Remove*) 1 note N/A 2099 [facility] Last Admin: 02/09/17 21:20 Dose: 1 note Polyethylene Glycol/Electrolytes (Miralax*) 17 gm PO DAILY PRN PRN Reason: CONSTIPATION Vital Signs 02/09/17 02/09/17 02/09/17 11:14 16:02 20:00 Temperature 98.1 F Pulse Rate 85 Respiratory 18 20 20 Rate Blood Pressure 140/66 (mmHg) O2 Sat by Pulse 95 Oximetry 02/09/17 02/09/17 02/10/17 20:17 23:11 03:45 Temperature 97.8 F 98.2 F 98.0 F Pulse Rate 92 79 89 Respiratory 20 16 Rate Blood Pressure 114/51 142/52 139/74 (mmHg) O2 Sat by Pulse 96 94 96 Oximetry 02/10/17 02/10/17 02/10/17 04:38 06:38 08:00 Temperature Pulse Rate Respiratory 20 16 16 Rate Blood Pressure (mmHg) O2 Sat by Pulse Oximetry 02/10/17 08:01 Temperature 97.8 F Pulse Rate 94 Respiratory 16 Rate Blood Pressure 116/71 (mmHg) O2 Sat by Pulse 93 Oximetry Oxygen Devices in Use Now: None Appearance: Elderly male, OOB to chair, NAD Eyes: PERRLA Ears/Nose/Mouth/Throat: Mucous Membranes Moist Respiratory: Symmetrical Chest Expansion and Respiratory Effort, Clear to Auscultation Cardiovascular: RRR Abdominal: NL Sounds; No Tenderness; No Distention Extremities: - - trace edema Skin: - - did not visual sacral wounds, patient with skin tear to right elbow and lower extremities Neurological: - - Disoriented to time Lines/Tubes/Other Access: Clean, Dry and Intact Peripheral IV Nutrition: Taking PO's Result Diagrams: 02/09/17 06:06 02/09/17 06:06 Additional Lab and Data: . Microbiology and Other Data: Microbiology 02/07/17 02:20 Nasal Screen MRSA (PCR)(COLLETTE) - Final Nasal Mrsa Negative Diagnostic Imaging: MRI LS - compression fracture L1, some signal changes of L1-2 and T11-12 no definite diskitis Assess/Plan/Problems-Billing Assessment: This is a 76 yo gentleman with UC, steroid induced DM, atrial fibrillation, candidal esophagitis and recent compression fractures [facility] - Patient Problems (1) Encephalopathy Code(s): G93.40 - ENCEPHALOPATHY, UNSPECIFIED Comment: Toxic encephalopathy likely due to recent increase in Percocet and UTI Improving Patient still mildly disoriented but easily reorients. Continue judicious use of Percocet and monitor mental status. (2) UTI (urinary tract infection) Comment: Empirically treated with ceftriaxone, but sensitivities now demonstrate resistance Final culture demonstrates >100K Citrobacter No growth on blood cultures thus far Continue cefepime. (3) Back pain Code(s): M54.9 - DORSALGIA, UNSPECIFIED Comment: Compression fractures ~ 4 weeks ago Patient mostly complaining of rectal pain - ordered topical lidocaine, pt doesn' t recall if it was helpful, try to use it on a scheduled bases Sacral ulcers may also be contributing - appreciate wound care consult, continue daily dressing changes with Santyl and vaseline gauze. 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% Per pt's family, no treatment has been initiated as his glycemic control is expected to improve as he is tapered off of his steroids Continue Lantus with SS Humalog at mealtime (5) Sacral decubitus ulcer, stage II Code(s): L89.152 - PRESSURE ULCER OF SACRAL REGION, STAGE 2 Comment: Appreciate wound care consult Daily dressing change recommended, with Santyl and vaseline gauze (6) Atrial fibrillation Code(s): I48.91 - UNSPECIFIED ATRIAL FIBRILLATION Comment: Not anticoagulated per family request h/o severe bleeding (7) Candidal esophagitis Code(s): B37.81 - CANDIDAL ESOPHAGITIS Comment: Cont clotrimazole (8) DVT prophylaxis Comment: SCDs Patient's family refuses use of chemical prophylaxis (9) DNR (do not resuscitate) Status and Disposition: Inpatient. Family wants different rehab - SW consult placed.
[2017-02-10] MEDS: Clotrimazole TROCHE* 10 MG TROCHE PO SCH ×3 (14:13→21:08)
[2017-02-10] MEDS: Lidocaine PATCH 5%* 1 PATCH TRANSDERM SCH (14:13)
[2017-02-10] MEDS: Insulin GLARGINE(*) 1 UNITS UNIT SUBCUT SCH (21:07)
[2017-02-10] MEDS: Lidocaine Patch REMOVE* 1 NOTE MISC SCH (21:08)
[2017-02-10] MEDS: Benzonatate CAP* 100 MG PO PRN (22:07)
[2017-02-11] MEDS: Cefepime(*) 1 GM in NS 0.9% 50 ML* 50 ML IVPB SCH (01:49)
[2017-02-11] MEDS: Clotrimazole TROCHE* 10 MG TROCHE PO SCH ×5 (05:26→20:59)
[2017-02-11] MEDS: Benzonatate CAP* 100 MG PO PRN ×2 (05:29→15:28)
--- NOTE | 2017-02-11 08:22 | PN ---
Subjective Date of Service: 02/11/17 Interval History: Patient seen and examined at bedside. He is very upset that his [id number] appears to be making decisions without him. He states, "I know what's going on, and I want to be kept in the loop." He wants to get out of the hospital as soon as possible. Patient is agreeable to rehab but wants a say as to where he is going. Denies CP, SOB. Reports intermittent cough. Reports pain is better when lidocaine patch is on. Family History: Unchanged from Admission Social History: Unchanged from Admission Past Medical History: Unchanged from Admission Objective Active Medications: Benzonatate (Tessalon Cap*) 100 mg PO TID PRN PRN Reason: COUGH Last Admin: 02/11/17 05:29 Dose: 100 mg Clotrimazole (Mycelex Heather*) 10 mg PO FIVE TIMES DAILY [facility] Last Admin: 02/11/17 05:26 Dose: 10 mg Collagenase (Santyl 250 Mg/Gm Oint*) 1 applic TOPICAL DAILY [facility] Last Admin: 02/10/17 09:00 Dose: 1 applic Dextrose (D50w Syringe 50 Ml*) 12.5 gm IV PUSH .FOR FS < 60 - SS PRN PRN Reason: FS < 60 Diltiazem HCl (Cardizem Cd Cap*) 360 mg PO DAILY [facility] Last Admin: 02/10/17 09:00 Dose: 360 mg Guaifenesin (Mucinex*) 600 mg PO BID PRN PRN Reason: COUGH Last Admin: 02/10/17 01:39 Dose: 600 mg Cefepime HCl 1 gm/ Sodium (Chloride) 50 mls @ 100 mls/hr IVPB Q12H [facility] Last Admin: 02/11/17 01:49 Dose: 100 mls/hr Insulin Glargine (Lantus(*)) 15 units SUBCUT Q24H [facility] Last Admin: 02/10/17 21:07 Dose: 15 units Insulin Human Lispro (Humalog*) 0 units SUBCUT ACHS [facility] PRN Reason: Protocol Last Admin: 02/10/17 21:06 Dose: 3 units Lactobacillus Rhamnosus (Culturelle*) 1 cap PO BID [facility] Last Admin: 02/10/17 21:08 Dose: 1 cap Lidocaine (Lidocaine 5% Oint*) 1 applic TOPICAL Q2H PRN PRN Reason: rectal pain Last Admin: 02/09/17 09:02 Dose: 1 applic Lidocaine (Lidocaine 5% Oint*) 1 applic TOPICAL TID [facility] Last Admin: 02/10/17 21:08 Dose: 1 applic Lidocaine (Lidoderm 5% Patch*) 1 patch TRANSDERM 0900 [facility] Last Admin: 02/10/17 14:13 Dose: 1 patch Mesalamine (Lialda (Nf)) 4.8 gm PO DAILY [facility] Last Admin: 02/10/17 08:59 Dose: 4.8 gm Methylprednisolone (Medrol Tab*) 16 mg PO BID [facility] Last Admin: 02/10/17 21:07 Dose: 16 mg Omeprazole (Prilosec Cap*) 40 mg PO DAILY@0730 [facility] Last Admin: 02/10/17 07:16 Dose: 40 mg Ondansetron HCl (Zofran Tab*) 4 mg PO Q6H PRN PRN Reason: NAUSEA Oxycodone/Acetaminophen (Percocet 5/325 Tab*) 1 tab PO Q6H PRN PRN Reason: PAIN Last Admin: 02/10/17 04:38 Dose: 1 tab Pharmacy Profile Note (Lidocaine Patch Remove*) 1 note N/A 2100 [facility] Last Admin: 02/10/17 21:08 Dose: 1 note Polyethylene Glycol/Electrolytes (Miralax*) 17 gm PO DAILY PRN PRN Reason: CONSTIPATION Vital Signs 02/10/17 02/10/17 02/10/17 16:43 20:00 23:23 Temperature 97.5 F 98.4 F Pulse Rate 81 88 Respiratory 17 16 20 Rate Blood Pressure 124/99 128/58 (mmHg) O2 Sat by Pulse 95 98 Oximetry 02/11/17 02/11/17 03:44 07:46 Temperature 98.0 F Pulse Rate 81 82 Respiratory 18 16 Rate Blood Pressure 132/43 148/65 (mmHg) O2 Sat by Pulse 90 96 Oximetry Oxygen Devices in Use Now: None Appearance: Elderly male, lying in bed, NAD Eyes: No Scleral Icterus Ears/Nose/Mouth/Throat: Mucous Membranes Moist Neck: NL Appearance and Movements; NL JVP Respiratory: Symmetrical Chest Expansion and Respiratory Effort, Clear to Auscultation, - - upper airway congestion noted Cardiovascular: RRR Abdominal: NL Sounds; No Tenderness; No Distention Extremities: - - trace edema Skin: - - multiple sacral wounds, right elbow wound, shallow ulcerations to bilateral legs Neurological: Alert and Oriented x 3, - - left eye ptosis (chronic per family), moves all extremities Lines/Tubes/Other Access: Clean, Dry and Intact Peripheral IV Nutrition: Taking PO's Result Diagrams: 02/09/17 06:06 02/09/17 06:06 Additional Lab and Data: . Microbiology and Other Data: Microbiology 02/07/17 02:20 Nasal Screen MRSA (PCR)(COLLETTE) - Final Nasal Mrsa Negative Diagnostic Imaging: MRI LS - compression fracture L1, some signal changes of L1-2 and T11-12 no definite diskitis Assess/Plan/Problems-Billing Assessment: This is a 76 yo gentleman with UC, steroid induced DM, atrial fibrillation, candidal esophagitis and recent compression fractures who presented from [facility] with AMS and severe back pain - Patient Problems (1) Encephalopathy Code(s): G93.40 - ENCEPHALOPATHY, UNSPECIFIED Comment: Toxic encephalopathy likely due to recent increase in Percocet and UTI Improving Patient still mildly disoriented but easily reorients. Continue judicious use of Percocet and monitor mental status. (2) UTI (urinary tract infection) Comment: Empirically treated with ceftriaxone, but sensitivities now demonstrate resistance Final culture demonstrates >100K Citrobacter No growth on blood cultures thus far Continue cefepime. (3) Back pain Code(s): M54.9 - DORSALGIA, UNSPECIFIED Comment: Compression fractures ~ 4 weeks ago Patient mostly complaining of rectal pain - ordered topical lidocaine, pt doesn' t recall if it was helpful, continue use on a scheduled basis Sacral ulcers may also be contributing - appreciate wound care consult, continue daily dressing changes with Santyl and vaseline gauze. 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 Increase Lantus and add carb coverage. (5) Sacral decubitus ulcer, stage II Code(s): L89.152 - PRESSURE ULCER OF SACRAL REGION, STAGE 2 Comment: Appreciate wound care consult Daily dressing change recommended, with Santyl and vaseline gauze (6) Atrial fibrillation Code(s): I48.91 - UNSPECIFIED ATRIAL FIBRILLATION Comment: Not anticoagulated per family request h/o severe bleeding (7) Candidal esophagitis Code(s): B37.81 - CANDIDAL ESOPHAGITIS Comment: Cont clotrimazole (8) DVT prophylaxis Comment: SCDs Patient's family refuses use of chemical prophylaxis (9) DNR (do not resuscitate) Status and Disposition: Inpatient. Family wants different rehab - SW consult placed.
[2017-02-11] MEDS ORDERED: Insulin GLARGINE(*) 1 UNITS UNIT SUBCUT ONE (09:01)
[2017-02-11] MEDS: PTO: Mesalamine (NF) 1.2 GM TAB PO SCH (09:12)
[2017-02-11] MEDS: Diltiazem CD CAP* 180 MG PO SCH (09:13)
[2017-02-11] MEDS: Lactobacillus Acidophilu (GG)* 1 CAP CAP PO SCH ×2 (09:13→20:55)
[2017-02-11] MEDS: methylPREDNISolone TAB* 4 MG PO SCH ×2 (09:13→20:57)
[2017-02-11] MEDS: Omeprazole CAP* 20 MG PO SCH (09:13)
[2017-02-11] MEDS: Lidocaine PATCH 5%* 1 PATCH TRANSDERM SCH (09:14)
[2017-02-11] MEDS: LIDOCAINE 5% TOPICAL SCH ×3 (09:14→21:03)
[2017-02-11] MEDS: Insulin LISPRO* 1 UNITS UNIT SUBCUT SCH ×7 (09:15→21:00)
[2017-02-11] MEDS: Collagenase 250 MG/GM OINT* 30 GM TOPICAL SCH (09:15)
[2017-02-11] MEDS: Sulfamethox/Trimethoprim DS 800/160* TAB PO SCH ×2 (10:19→20:54)
[2017-02-11] MEDS: guaiFENesin ER TAB 600 MG PO PRN (13:14)
[2017-02-11] MEDS: oxyCODONE/Acetamin 5/325 MG* TAB PO PRN (20:38)
[2017-02-11] MEDS: Insulin GLARGINE(*) 1 UNITS UNIT SUBCUT SCH (21:00)
[2017-02-11] MEDS ORDERED: methylPREDNISolone TAB* 4 MG PO SCH (21:00)
[2017-02-11] MEDS: Lidocaine Patch REMOVE* 1 NOTE MISC SCH (21:06)
[2017-02-12] MEDS: Clotrimazole TROCHE* 10 MG TROCHE PO SCH ×5 (06:07→22:20)
--- NOTE | 2017-02-12 07:58 | PN ---
Subjective Date of Service: 02/12/17 Interval History: Patient seen and examined at bedside. No acute concerns or complaints. Patient eager to go to rehab but does not wish to return to [facility]. Back pain better controlled with positioning and lidocaine patch. Denies CP, SOB, abd pain, n/v, fever/chills. Family History: Unchanged from Admission Social History: Unchanged from Admission Past Medical History: Unchanged from Admission Objective Active Medications: Benzonatate (Tessalon Cap*) 100 mg PO TID PRN PRN Reason: COUGH Last Admin: 02/11/17 15:28 Dose: 100 mg Clotrimazole (Mycelex Heather*) 10 mg PO FIVE TIMES DAILY [facility] Last Admin: 02/12/17 06:07 Dose: Not Given Collagenase (Santyl 250 Mg/Gm Oint*) 1 applic TOPICAL DAILY [facility] Last Admin: 02/11/17 09:15 Dose: 1 applic Dextrose (D50w Syringe 50 Ml*) 12.5 gm IV PUSH .FOR FS < 60 - SS PRN PRN Reason: FS < 60 Diltiazem HCl (Cardizem Cd Cap*) 360 mg PO DAILY [facility] Last Admin: 02/11/17 09:13 Dose: 360 mg Guaifenesin (Mucinex*) 600 mg PO BID PRN PRN Reason: COUGH Last Admin: 02/11/17 13:14 Dose: 600 mg Insulin Glargine (Lantus(*)) 15 units SUBCUT Q24H [facility] Last Admin: 02/11/17 21:00 Dose: 15 units Insulin Human Lispro (Humalog*) 0 units SUBCUT ACHS [facility] PRN Reason: Protocol Last Admin: 02/11/17 21:00 Dose: 12 units Insulin Human Lispro (Humalog*) 0 units SUBCUT AC [facility] PRN Reason: Protocol Last Admin: 02/11/17 18:13 Dose: Not Given Lactobacillus Rhamnosus (Culturelle*) 1 cap PO BID [facility] Last Admin: 02/11/17 20:55 Dose: 1 cap Lidocaine (Lidocaine 5% Oint*) 1 applic TOPICAL Q2H PRN PRN Reason: rectal pain Last Admin: 02/09/17 09:02 Dose: 1 applic Lidocaine (Lidocaine 5% Oint*) 1 applic TOPICAL TID [facility] Last Admin: 02/11/17 21:03 Dose: 1 applic Lidocaine (Lidoderm 5% Patch*) 1 patch TRANSDERM 0900 [facility] Last Admin: 02/11/17 09:14 Dose: 1 patch Mesalamine (Lialda (Nf)) 4.8 gm PO DAILY [facility] Last Admin: 02/11/17 09:12 Dose: 4.8 gm Methylprednisolone (Medrol Tab*) 16 mg PO QAM [facility] Stop: 02/17/17 09:01 Methylprednisolone (Medrol Tab*) 12 mg PO BEDTIME [facility] Stop: 02/17/17 21:01 Methylprednisolone (Medrol Tab*) 12 mg PO BID [facility] Stop: 02/22/17 21:01 Methylprednisolone (Medrol Tab*) 16 mg PO BID [facility] Stop: 02/13/17 00:01 Last Admin: 02/11/17 20:57 Dose: 16 mg Methylprednisolone (Medrol Tab*) 12 mg PO QAM [facility] Stop: 02/27/17 09:01 Methylprednisolone (Medrol Tab*) 8 mg PO BEDTIME [facility] Stop: 02/27/17 21:01 Methylprednisolone (Medrol Tab*) 8 mg PO BID [facility] Stop: 03/04/17 21:01 Methylprednisolone (Medrol Tab*) 8 mg PO QAM [facility] Stop: 03/09/17 09:01 Methylprednisolone (Medrol Tab*) 4 mg PO BEDTIME [facility] Stop: 03/09/17 21:01 Methylprednisolone (Medrol Tab*) 4 mg PO BID [facility] Stop: 03/14/17 21:01 Omeprazole (Prilosec Cap*) 40 mg PO DAILY@0730 [facility] Last Admin: 02/11/17 09:13 Dose: 40 mg Ondansetron HCl (Zofran Tab*) 4 mg PO Q6H PRN PRN Reason: NAUSEA Oxycodone/Acetaminophen (Percocet 5/325 Tab*) 1 tab PO Q6H PRN PRN Reason: PAIN Last Admin: 02/11/17 20:38 Dose: 1 tab Pharmacy Profile Note (Lidocaine Patch Remove*) 1 note N/A 2100 [facility] Last Admin: 02/11/17 21:06 Dose: 1 note Polyethylene Glycol/Electrolytes (Miralax*) 17 gm PO DAILY PRN PRN Reason: CONSTIPATION Trimethoprim/Sulfamethoxazole (Bactrim Ds 800/160 Tab*) 1 tab PO BID [facility] Last Admin: 02/11/17 20:54 Dose: 1 tab Vital Signs 02/11/17 02/11/17 02/11/17 08:00 11:38 16:32 Temperature 97.2 F 97.9 F Pulse Rate 99 78 Respiratory 18 16 20 Rate Blood Pressure 134/58 123/59 (mmHg) O2 Sat by Pulse 93 96 Oximetry 02/11/17 02/11/17 02/11/17 20:06 20:38 22:38 Temperature 97.7 F Pulse Rate 83 Respiratory 24 18 16 Rate Blood Pressure 134/51 (mmHg) O2 Sat by Pulse 95 Oximetry 02/12/17 02/12/17 02/12/17 00:27 03:39 05:43 Temperature 97.6 F 98.2 F Pulse Rate 89 92 Respiratory 24 16 16 Rate Blood Pressure 142/59 130/69 (mmHg) O2 Sat by Pulse 96 92 Oximetry 02/12/17 02/12/17 05:45 07:44 Temperature 97.6 F Pulse Rate 90 Respiratory 18 16 Rate Blood Pressure 133/62 (mmHg) O2 Sat by Pulse 95 Oximetry Oxygen Devices in Use Now: None Appearance: Elderly male, lying in bed, NAD Ears/Nose/Mouth/Throat: Mucous Membranes Moist Respiratory: Symmetrical Chest Expansion and Respiratory Effort, Clear to Auscultation Cardiovascular: NL Sounds; No Murmurs; No JVD, RRR Abdominal: NL Sounds; No Tenderness; No Distention Extremities: No Edema Neurological: Alert and Oriented x 3 Lines/Tubes/Other Access: Clean, Dry and Intact Peripheral IV Nutrition: Taking PO's Result Diagrams: 02/09/17 06:06 02/09/17 06:06 Additional Lab and Data: . Microbiology and Other Data: Microbiology 02/07/17 02:20 Nasal Screen MRSA (PCR)(COLLETTE) - Final Nasal Mrsa Negative Diagnostic Imaging: MRI LS - compression fracture L1, some signal changes of L1-2 and T11-12 no definite diskitis Assess/Plan/Problems-Billing Assessment: This is a 76 yo gentleman with UC, steroid induced DM, atrial fibrillation, candidal esophagitis and recent compression fractures who presented from [facility] with AMS and severe back pain - Patient Problems (1) Encephalopathy Code(s): G93.40 - ENCEPHALOPATHY, UNSPECIFIED Comment: Resolved Toxic encephalopathy likely due to recent increase in Percocet and UTI Patient still mildly disoriented but easily reorients. Continue judicious use of Percocet and monitor mental status. (2) UTI (urinary tract infection) Comment: Empirically treated with ceftriaxone, but sensitivities now demonstrate resistance Final culture demonstrates >100K Citrobacter No growth on blood cultures thus far Cefepime changed to Bactrim. (3) Back pain Code(s): M54.9 - DORSALGIA, UNSPECIFIED Comment: Compression fractures ~ 4 weeks ago Patient mostly complaining of rectal pain - ordered topical lidocaine, pt doesn' t recall if it was helpful, continue use on a scheduled basis Sacral ulcers may also be contributing - appreciate wound care consult, continue daily dressing changes with Santyl and vaseline gauze. 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 Mcdonough, plan to taper by 4 mg every 5 days and finish by March. Continue Lantus with SS Humalog at mealtime. Increase Lantus and add carb coverage. (5) Sacral decubitus ulcer, stage II Code(s): L89.152 - PRESSURE ULCER OF SACRAL REGION, STAGE 2 Comment: Appreciate wound care consult Daily dressing change recommended, with Santyl and vaseline gauze (6) Atrial fibrillation Code(s): I48.91 - UNSPECIFIED ATRIAL FIBRILLATION Comment: Not anticoagulated per family request h/o severe bleeding (7) Candidal esophagitis Code(s): B37.81 - CANDIDAL ESOPHAGITIS Comment: Cont clotrimazole (8) DVT prophylaxis Comment: SCDs Patient's family refuses use of chemical prophylaxis (9) DNR (do not resuscitate) Status and Disposition: Inpatient. SW working with family to find rehab facility.
[2017-02-12] MEDS: oxyCODONE/Acetamin 5/325 MG* TAB PO PRN (08:12)
[2017-02-12] MEDS: Omeprazole CAP* 20 MG PO SCH (08:13)
[2017-02-12] MEDS: Sulfamethox/Trimethoprim DS 800/160* TAB PO SCH ×2 (08:13→22:17)
[2017-02-12] MEDS: Diltiazem CD CAP* 180 MG PO SCH (08:13)
[2017-02-12] MEDS: Lactobacillus Acidophilu (GG)* 1 CAP CAP PO SCH ×2 (08:14→22:17)
[2017-02-12] MEDS: Benzonatate CAP* 100 MG PO PRN (08:14)
[2017-02-12] MEDS: PTO: Mesalamine (NF) 1.2 GM TAB PO SCH (08:16)
[2017-02-12] MEDS: methylPREDNISolone TAB* 4 MG PO SCH ×2 (08:17→22:18)
[2017-02-12] MEDS: Collagenase 250 MG/GM OINT* 30 GM TOPICAL SCH (08:21)
[2017-02-12] MEDS: LIDOCAINE 5% TOPICAL SCH ×3 (08:23→22:22)
[2017-02-12] MEDS: Insulin LISPRO* 1 UNITS UNIT SUBCUT SCH ×7 (09:13→22:21)
[2017-02-12] MEDS: Lidocaine PATCH 5%* 1 PATCH TRANSDERM SCH (11:01)
[2017-02-12] MEDS ORDERED: traMADol TAB* 50 MG PO PRN (18:37)
[2017-02-12] MEDS: Insulin GLARGINE(*) 1 UNITS UNIT SUBCUT SCH (22:20)
[2017-02-12] MEDS: Lidocaine Patch REMOVE* 1 NOTE MISC SCH (22:22)
[2017-02-13] MEDS: Clotrimazole TROCHE* 10 MG TROCHE PO SCH ×2 (06:31→08:51)
--- NOTE | 2017-02-13 07:18 | DS ---
CC: Asia Rodriguez, ID * DISCHARGE SUMMARY: DATE OF ADMISSION: 02/07/17 DATE OF DISCHARGE: 02/13/17 PRIMARY CARE PHYSICIAN: Asia Rodriguez. PROVIDER: Oriana Victoria NP ATTENDING PHYSICIAN: Dr. Jacqueline Weller * (as dictated by Oriana Victoria NP) CONSULTING PHYSICIAN: Dr. Mark. PRIMARY DISCHARGE DIAGNOSES: 1. Encephalopathy secondary to opioid use and urinary tract infection. 2. Urinary tract infection. 3. Back pain. 4. Sacral ulcers. 5. Right elbow ulcer. SECONDARY DISCHARGE DIAGNOSES: 1. Potential ulcerative colitis. 2. Previous left limb cellulitis. 3. Recent multiple falls. 4. Compression fracture of T11 and T12. 5. Wedge compression fracture of the first lumbar vertebrae. 6. Type 2 diabetes. 7. Hypertension. 8. Irritable bowel syndrome. 9. Atrial fibrillation. 10. Candidal esophagitis. MEDICATIONS AT DISCHARGE: 1. Zofran 4 mg q.6 hours p.r.n. 2. Percocet 1 tab q.6 hours p.r.n. 3. Omeprazole 40 mg daily. 4. Mesalamine 4.8 g daily. 5. Furosemide 20 mg every other day. 6. Calmol suppository at bedtime. 7. Tylenol 500 to 1000 mg q.8 hours p.r.n. 8. Bactrim DS 1 tab b.i.d. x5 additional days. 9. Lidocaine patch to L1 region on for 12 hours, off for 12 hours. 10. Lidocaine 5% ointment topically to the rectum t.i.d. and q.2 hours p.r.n. 11. Culturelle probiotic 1 capsule b.i.d. 12. Lispro sliding scale insulin at mealtime. 13. Lantus 15 units subcu q.24. 14. Cardizem CD 360 mg daily. 15. Santyl topical daily to affected areas. 16. Clotrimazole 10 mg p.o. 5 times daily. 17. Tessalon Perles 100 mg b.i.d. p.r.n. 18. Methylprednisolone, on 02/13/17, the patient is to start 16 mg q.a.m. and 12 mg at bedtime for 5 days. On 02/18/17, the patient is to take 12 mg b.i.d. for 5 days. On 02/23/17, the patient is to take 12 mg q.a.m. and 8 mg at bedtime for 5 days starting. On 02/28/17, the patient is to take 8 mg b.i.d. for 5 days. On March 05, the patient is to take 8 mg q.a.m. and 4 mg at bedtime for 5 days. On March 10, the patient is to take 4 mg b.i.d. x5 days and then on March 15, the patient is to take 4 mg daily x5 days, and then discontinue. DIAGNOSTIC TESTING DURING THIS ADMISSION: 02/06/17, brain CT shows no evidence of acute infarct, mass effect, or hemorrhage. MRI lumbar spine, 02/07/17, impression: Abnormal signal L3, L2, L1, T12, and T11, which appears conspicuous. Compression of L1 is noted. No definite bone marrow edema is noted. 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 Additionally, there is some fluid noted at the inferior disk space at L1-L2 and T11- T12, which is likely due to avascular necrosis. This probably does not represent diskitis, although the patient refused IV contrast and further characterization is not possible. HOSPITAL COURSE OF STAY: For full details, please refer to the full medical record. In summary, Mr. Ramos is a 76-year-old male patient who was sent from [facility] for altered mental status and low back pain. The patient was previously alert, oriented, and independent at home, but experienced 3 to 4 falls in the past few months when at home resulting in severe low back pain and difficulty with ambulation. The patient ultimately was sent to [facility] for rehab and presented to the hospital on 02/07/17 with altered mental status that was thought to be secondary to increased narcotics and UTI. The family was dissatisfied with [facility] and states that they would like to pursue a different rehab center. During the patient's stay, his mental state did improve with antibiotics and judicious use of pain medications. He was seen in consultation by Neurosurgery, who do not feel surgery was indicated at this time for his fracture. It was felt that the patient's low back pain and primary complaint was mostly related to the sacral ulcer that he does have. He was seen in consultation by Wound Care, who recommended Santyl dressings daily to the patient's ulceration. This has helped to facilitate healing to these wounds. Additionally, we have applied topical lidocaine to the rectum to help with this pain as well. The patient has also reported good relief from pain with the lidocaine patch. The patient did have a positive urine culture with Citrobacter freundii, which was resistant to ceftriaxone. He was treated with cefepime and then switched to Bactrim, which does have sensitivity. He needs to continue this medication for additional 5 days, given the first treatment was resistant to the bacteria. In regards to the diabetes, the patient has no previous history of diabetes, it is steroid induced and per the patient's family, had not previously been treated. However, given the patient's present wounds, it was discussed that glycemic control would be appropriate in order to facilitate healing. The patient was started by Dr. Mcdonough on a methylprednisolone dosing with respective taper. We have continued to taper here in the hospital and he will need to continue this so that he can be off the steroids prior to his followup visit with Dr. Mcdonough. In regards to the patient's atrial fibrillation, he is not anticoagulated per family's request due to history of severe bleeding. His diltiazem was mildly increased while he was here with good rate control. The patient has a left arm cellulitis that was in the process of healing prior to admission. The patient does still have some edema to the site, but no significant redness or pain and is not warm to the touch. The patient has been afebrile and has no leukocytosis to demonstrate an acute infection. The patient was initially planned to discharge back to [facility]; however, they have declined this and requested a new facility, preferably one closer to the family. He is to be discharged to [facility] for subacute rehab on 02/13/17. CONCERNS AT DISCHARGE: Mr. Ramos is discharged to [facility] on 02/13/17. He should follow up with the facility physician. DIET: Consistent-carbohydrate diet while on steroids. The patient is to take Glucerna supplements for protein supplementation for acute wound healing. ACTIVITY: As tolerated. The patient is currently a Jose lift out of bed. He should be turned position every 2 hours for skin integrity for prevention of any further pressure ulcers. WOUND CARE: The patient is to have daily dressing changes to the sacral wound ulcers with Santyl, Vaseline gauze, and dry gauze. The patient also requires daily dressing changes to his right elbow. OUTPATIENT FOLLOWUP NEEDS: The patient is to continue his Solu-Medrol taper as previously indicated. He is to follow up with Gastroenterology in March as previously scheduled. The patient has a healing left arm cellulitis, this should continue to be monitored. CONDITION: Stable. DISPOSITION: To [facility]. TIME SPENT: Time spent on this discharge was approximately 50 minutes. Again, this is only a brief summary of the patient's hospital course of stay. For full details, please refer to the full medical record. If you have any further questions or need further assistance, please feel free to contact me at . ORIANA VICTORIA NP [id number]/[id number]/CPS #: [id number] DEB
[2017-02-13 07:31] VITALS: BP 149/65
[2017-02-13] MEDS: Omeprazole CAP* 20 MG PO SCH (07:51)
[2017-02-13] MEDS: Insulin LISPRO* 1 UNITS UNIT SUBCUT SCH ×2 (07:52→08:50)
[2017-02-13] MEDS: Lidocaine PATCH 5%* 1 PATCH TRANSDERM SCH (08:00)
[2017-02-13] MEDS: PTO: Mesalamine (NF) 1.2 GM TAB PO SCH (08:04)
[2017-02-13] MEDS: Lactobacillus Acidophilu (GG)* 1 CAP CAP PO SCH (08:11)
[2017-02-13] MEDS: Sulfamethox/Trimethoprim DS 800/160* TAB PO SCH (08:12)
[2017-02-13] MEDS: Diltiazem CD CAP* 180 MG PO SCH (08:14)
[2017-02-13] MEDS: Collagenase 250 MG/GM OINT* 30 GM TOPICAL SCH (08:15)
[2017-02-13] MEDS: LIDOCAINE 5% TOPICAL SCH (08:15)
[2017-02-13] MEDS ORDERED: methylPREDNISolone TAB* 4 MG PO SCH ×2 (09:00→21:00)
--- NOTE | 2017-02-13 09:11 | PN ---
Subjective Date of Service: 02/13/17 Interval History: Patient seen and examined at bedside. No acute complaints. Denies fever/chills, CP, SOB. Plan for transfer to [facility] today. Family History: Unchanged from Admission Social History: Unchanged from Admission Past Medical History: Unchanged from Admission Objective Active Medications: Benzonatate (Tessalon Cap*) 100 mg PO TID PRN PRN Reason: COUGH Last Admin: 02/12/17 08:14 Dose: 100 mg Clotrimazole (Mycelex Heather*) 10 mg PO FIVE TIMES DAILY [facility] Last Admin: 02/13/17 08:51 Dose: 10 mg Collagenase (Santyl 250 Mg/Gm Oint*) 1 applic TOPICAL DAILY [facility] Last Admin: 02/13/17 08:15 Dose: 1 applic Dextrose (D50w Syringe 50 Ml*) 12.5 gm IV PUSH .FOR FS < 60 - SS PRN PRN Reason: FS < 60 Diltiazem HCl (Cardizem Cd Cap*) 360 mg PO DAILY [facility] Last Admin: 02/13/17 08:14 Dose: 360 mg Guaifenesin (Mucinex*) 600 mg PO BID PRN PRN Reason: COUGH Last Admin: 02/11/17 13:14 Dose: 600 mg Insulin Glargine (Lantus(*)) 15 units SUBCUT Q24H [facility] Last Admin: 02/12/17 22:20 Dose: 15 units Insulin Human Lispro (Humalog*) 0 units SUBCUT ACHS [facility] PRN Reason: Protocol Last Admin: 02/13/17 07:52 Dose: Not Given Insulin Human Lispro (Humalog*) 0 units SUBCUT AC [facility] PRN Reason: Protocol Last Admin: 02/13/17 08:50 Dose: 1 units Lactobacillus Rhamnosus (Culturelle*) 1 cap PO BID [facility] Last Admin: 02/13/17 08:11 Dose: 1 cap Lidocaine (Lidocaine 5% Oint*) 1 applic TOPICAL Q2H PRN PRN Reason: rectal pain Last Admin: 02/09/17 09:02 Dose: 1 applic Lidocaine (Lidocaine 5% Oint*) 1 applic TOPICAL TID [facility] Last Admin: 02/13/17 08:15 Dose: 1 applic Lidocaine (Lidoderm 5% Patch*) 1 patch TRANSDERM 0900 [facility] Last Admin: 02/13/17 08:00 Dose: 1 patch Mesalamine (Lialda (Nf)) 4.8 gm PO DAILY [facility] Last Admin: 02/13/17 08:04 Dose: 4.8 gm Methylprednisolone (Medrol Tab*) 16 mg PO QAM [facility] Stop: 02/17/17 09:01 Last Admin: 02/13/17 08:09 Dose: 16 mg Methylprednisolone (Medrol Tab*) 12 mg PO BEDTIME [facility] Stop: 02/17/17 21:01 Methylprednisolone (Medrol Tab*) 12 mg PO BID [facility] Stop: 02/22/17 21:01 Methylprednisolone (Medrol Tab*) 12 mg PO QAM [facility] Stop: 02/27/17 09:01 Methylprednisolone (Medrol Tab*) 8 mg PO BEDTIME [facility] Stop: 02/27/17 21:01 Methylprednisolone (Medrol Tab*) 8 mg PO BID [facility] Stop: 03/04/17 21:01 Methylprednisolone (Medrol Tab*) 8 mg PO QAM [facility] Stop: 03/09/17 09:01 Methylprednisolone (Medrol Tab*) 4 mg PO BEDTIME [facility] Stop: 03/09/17 21:01 Methylprednisolone (Medrol Tab*) 4 mg PO BID [facility] Stop: 03/14/17 21:01 Omeprazole (Prilosec Cap*) 40 mg PO DAILY@0730 [facility] Last Admin: 02/13/17 07:51 Dose: 40 mg Ondansetron HCl (Zofran Tab*) 4 mg PO Q6H PRN PRN Reason: NAUSEA Pharmacy Profile Note (Lidocaine Patch Remove*) 1 note N/A 2100 [facility] Last Admin: 02/12/17 22:22 Dose: 1 note Polyethylene Glycol/Electrolytes (Miralax*) 17 gm PO DAILY PRN PRN Reason: CONSTIPATION Tramadol HCl (Ultram*) 50 mg PO Q6H PRN PRN Reason: PAIN Last Admin: 02/13/17 02:06 Dose: 50 mg Trimethoprim/Sulfamethoxazole (Bactrim Ds 800/160 Tab*) 1 tab PO BID [facility] Last Admin: 02/13/17 08:12 Dose: 1 tab Vital Signs 02/12/17 02/12/17 02/12/17 10:12 12:01 12:12 Temperature 97.7 F Pulse Rate 96 Respiratory 16 16 16 Rate Blood Pressure 152/80 (mmHg) O2 Sat by Pulse 94 Oximetry 02/12/17 02/12/1717 14:12 14:35 15:30 Temperature 98.7 F 98.4 F Pulse Rate 108 100 Respiratory 16 16 18 Rate Blood Pressure 155/85 147/69 (mmHg) O2 Sat by Pulse 94 95 Oximetry 02/12/17 02/12/17 02/12/17 16:12 20:00 23:39 Temperature Pulse Rate 71 Respiratory 18 18 16 Rate Blood Pressure 148/62 (mmHg) O2 Sat by Pulse 93 Oximetry 02/13/17 02/13/17 02:06 07:23 Temperature 97.3 F Pulse Rate 70 Respiratory 16 17 Rate Blood Pressure 149/65 (mmHg) O2 Sat by Pulse 88 Oximetry Oxygen Devices in Use Now: None Appearance: Elderly male, lying in bed, NAD Respiratory: Symmetrical Chest Expansion and Respiratory Effort, Clear to Auscultation Cardiovascular: RRR Abdominal: NL Sounds; No Tenderness; No Distention Extremities: No Edema Neurological: Alert and Oriented x 3 Result Diagrams: 02/09/17 06:06 02/09/17 06:06 Additional Lab and Data: . Microbiology and Other Data: Microbiology 02/07/17 02:20 Nasal Screen MRSA (PCR)(COLLETTE) - Final Nasal Mrsa Negative Diagnostic Imaging: MRI LS - compression fracture L1, some signal changes of L1-2 and T11-12 no definite diskitis Assess/Plan/Problems-Billing Assessment: This is a 76 yo gentleman with UC, steroid induced DM, atrial fibrillation, candidal esophagitis and recent compression fractures who presented from [facility] with AMS and severe back pain - Patient Problems (1) Encephalopathy Code(s): G93.40 - ENCEPHALOPATHY, UNSPECIFIED Comment: Resolved Toxic encephalopathy likely due to recent increase in Percocet and UTI Patient still mildly disoriented but easily reorients. Continue judicious use of Percocet and monitor mental status. (2) UTI (urinary tract infection) Comment: Empirically treated with ceftriaxone, but sensitivities now demonstrate resistance Final culture demonstrates >100K Citrobacter No growth on blood cultures thus far Cefepime changed to Bactrim. (3) Back pain Code(s): M54.9 - DORSALGIA, UNSPECIFIED Comment: Compression fractures ~ 4 weeks ago Patient mostly complaining of rectal pain - ordered topical lidocaine, pt doesn' t recall if it was helpful, continue use on a scheduled basis Sacral ulcers may also be contributing - appreciate wound care consult, continue daily dressing changes with Santyl and vaseline gauze. 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 Mcdonough, plan to taper by 4 mg every 5 days and finish by March. Continue Lantus with SS Humalog at mealtime. Increase Lantus and add carb coverage. (5) Sacral decubitus ulcer, stage II Code(s): L89.152 - PRESSURE ULCER OF SACRAL REGION, STAGE 2 Comment: Appreciate wound care consult Daily dressing change recommended, with Santyl and vaseline gauze (6) Atrial fibrillation Code(s): I48.91 - UNSPECIFIED ATRIAL FIBRILLATION Comment: Not anticoagulated per family request h/o severe bleeding (7) Candidal esophagitis Code(s): B37.81 - CANDIDAL ESOPHAGITIS Comment: Cont clotrimazole (8) DVT prophylaxis Comment: SCDs Patient's family refuses use of chemical prophylaxis (9) DNR (do not resuscitate) Status and Disposition: Inpatient. D/c to [facility].
[2017-02-18] MEDS ORDERED: methylPREDNISolone TAB* 4 MG PO SCH (09:00)
[2017-02-23] MEDS ORDERED: methylPREDNISolone TAB* 4 MG PO SCH ×2 (09:00→21:00)
[2017-02-28] MEDS ORDERED: methylPREDNISolone TAB* 4 MG PO SCH (09:00)
[2017-03-05] MEDS ORDERED: methylPREDNISolone TAB* 4 MG PO SCH ×2 (09:00→21:00)
[2017-03-10] MEDS ORDERED: methylPREDNISolone TAB* 4 MG PO SCH (09:00)
== END 2017-02-13 09:05 | DRG 52 ==
LOC: ED 18:12 → MED 02-07 00:15
PROVIDERS: ADMIT Internal Medicine; ATTEND Hospitalist
DX: G92 Toxic encephalopathy (principal); N39.0 Urinary tract infection, site not specified; L89.152 Pressure ulcer of sacral region, stage 2; S22.089A Unspecified fracture of T11-T12 vertebra, initial encounter for closed fracture; S32.010A Wedge compression fracture of first lumbar vertebra, initial encounter for closed fracture; B37.81 Candidal esophagitis; E09.622 Drug or chemical induced diabetes mellitus with other skin ulcer; K51.90 Ulcerative colitis, unspecified, without complications; L03.114 Cellulitis of left upper limb; T40.2X5A Adverse effect of other opioids, initial encounter; B96.89 Other specified bacterial agents as the cause of diseases classified elsewhere; L98.499 Non-pressure chronic ulcer of skin of other sites with unspecified severity; T38.0X5A Adverse effect of glucocorticoids and synthetic analogues, initial encounter; W18.30XA Fall on same level, unspecified, initial encounter; I10 Essential (primary) hypertension; I48.91 Unspecified atrial fibrillation; Z16.39 Resistance to other specified antimicrobial drug; E86.0 Dehydration; F44.89 Other dissociative and conversion disorders; Z66 Do not resuscitate; Z87.891 Personal history of nicotine dependence; Y92.129 Unspecified place in nursing home as the place of occurrence of the external cause; Y92.9 Unspecified place or not applicable; Z79.1 Long term (current) use of non-steroidal anti-inflammatories (NSAID); Z79.899 Other long term (current) drug therapy
CPT/HCPCS: 36415; 70450; 71010; 72148; 80048; 80053; 80307; 81003; 81015; 82550; 83036; 83605; 83735; 83880; 84484; 85025; 85610; 87040; 87077; 87086; 87186; 87641; 93005; A9270-GY; J0692; J0696; J1644; J3480; J7509; J7512